=== PATIENT | male | born 1935 | race Caucasian/White ===

== ENCOUNTER 2018-02-15 12:31 | Inpatient (IN) | payer MEDICARE, MEDICAID ==
[~2018-02-15] VITALS: Ht 182.9 cm; Wt 68.9 kg
[~2018-02-15 12:31] MED LIST: ACET650S26 GT; ALBU2.5V38 NEB; AMLO5TAB4 GT; ASCO500C18 GT; ASPI-1169 GT; ATOR10TA GT; CRAN3875 GT; CRAN425C6 GT; DOCU-141 GT; DONE10TA11 GT; FLUO10CA26 GT; INSU100V27 SQ; MAGN2400 GT; METF-440 GT; MULT-1185 GT; NA P133E RC; NUT.237L30 GT; RIVA10TA GT; ZINC220C6 GT
--- NOTE | 2018-02-15 13:13 | NUR ---
PAGED DR BESS CONNER FOR CONSULT
[2018-02-15] MEDS ORDERED: LORAZEPAM INJ 2 MG/ML VIAL ONE (13:21)
--- NOTE | 2018-02-15 13:28 | NUR ---
CALLED NURSING RESPIRATORY CARE INSTRUCTOR FOR M/S BED
[2018-02-15] MEDS ORDERED: LORAZEPAM INJ 2 MG/ML VIAL IV ONE (13:30)
--- NOTE | 2018-02-15 13:37 | NUR ---
PAGED DR KNUTSON UROLOGIST FOR CONSULT
[2018-02-15 13:42] LABS: BASOPHILS # (AUTO) 0.1 /CMM (0.0-0.2); BASOPHILS % (AUTO) 0.5 % (0.0-2.0); EOSINOPHILS % (AUTO) 0.1 % (0.0-6.0); HEMATOCRIT 27 % (39-51); HEMOGLOBIN 8.8 g/dL (13.5-17.5); LYMPHOCYTES # (AUTO) 1.8 /CMM (0.8-4.8); LYMPHOCYTES % (AUTO) 9.2 % (20.0-44.0); MEAN CORPUSCULAR HGB CONC 33 g/dl (31.0-36.0); MEAN CORPUSCULAR VOLUME 86 fL (80-96); MONOCYTES # (AUTO) 1.1 /CMM (0.1-1.30); MONOCYTES % (AUTO) 5.6 % (2.0-12.0); NEUTROPHILS # (AUTO) 16.7 /CMM (1.8-8.9); NEUTROPHILS % (AUTO) 84.6 % (43.0-81.0); PLATELET COUNT (AUTO) 314 /CMM (150-450); RED BLOOD CELL COUNT(AUTO) 3.13 MIL/uL (4.5-6.0); WHITE BLOOD COUNT (AUTO) 19.8 K/uL (4.3-11.0)
[2018-02-15] MEDS ORDERED: NUTR1PAC14 GT (13:50)
[2018-02-15 13:55] LABS: ALANINE AMINOTRANSFERASE 11 U/L (12-78); ALBUMIN 2.8 g/dL (3.4-5.0); ALKALINE PHOSPHATASE 133 U/L (46-116); ASPARTATE AMINOTRANSFERASE 12 U/L (15-37); BILIRUBIN,DIRECT 0.2 mg/dL (0.0-0.2); BILIRUBIN,TOTAL 0.5 mg/dL (0.2-1.0); CALCIUM, SERUM 8.8 mg/dL (8.5-10.1); CARBON DIOXIDE 27 mmol/L (21-32); CHLORIDE 91 mmol/L (98-107); CREATININE 1.3 mg/dL (0.6-1.3); GLUCOSE 174 mg/dL (74-106); POTASSIUM 5.4 mmol/L (3.5-5.1); SODIUM SERUM 125 mmol/L (136-145); TOTAL PROTEIN, SERUM 7.5 g/dL (6.4-8.2); UREA NITROGEN, BLOOD 53 mg/dL (7-18)
--- NOTE | 2018-02-15 13:57 | NUR ---
URINE COLLECTED FROM [facility] AND SENT TO STAT LAB
[2018-02-15] MEDS ORDERED: LORAZEPAM INJ 2 MG/ML VIAL IV PRN (14:00)
[2018-02-15] MEDS ORDERED: ONDANSETRON HCL/PF 4 MG/2 ML VIAL IVP PRN (14:00)
[2018-02-15] MEDS ORDERED: HYDROCODONE/APAP 5/325MG 1 EACH TABLET PO PRN (14:00)
[2018-02-15] MEDS ORDERED: ACETAMINOPHEN 325 MG TABLET PO PRN (14:00)
[2018-02-15] MEDS ORDERED: Z GUARD REMEDY 2 OZ OINT TP PRN (14:00)
[2018-02-15] MEDS ORDERED: MAGNESIUM HYDROXIDE 30 ML UDC PO PRN (14:00)
[2018-02-15] MEDS ORDERED: CEFTRIAXONE 1GM BAG (ER ONLY) 50 ML IV ONE (14:00)
[2018-02-15] MEDS ORDERED: IV NS 0.9% 1,000 ML BAG IV ONE (14:00)
[2018-02-15] MEDS ORDERED: MAG HYDROX/AL HYDROX/SIMETH 30 ML UDC PO PRN (14:00)
[2018-02-15] MEDS ORDERED: CEFTRIAXONE 1 G VIAL ONE (14:08)
[2018-02-15 14:11] LABS: APPEARANCE,URINE Cloudy (CLEAR); BILIRUBIN,URINE SMALL (NEGATIVE); BLOOD, URINE Large Ery/uL (NEGATIVE); COLOR,URINE Other (YELLOW); KETONES,URINE Trace (NEGATIVE); LEUKOCYTE ESTERASE ,URINE Small (NEGATIVE); NITRITE, URINE Positive (NEGATIVE); PH,URINE 5.5 (5.0-8.0); PROTEIN,URINE >=300 mg/dl (NEGATIVE); UGLUCOSE Negative (NEGATIVE); UROBILINOGEN,URINE 0.2 EU/dL (0.2)
[2018-02-15] MEDS ORDERED: TAMSULOSIN 0.4 MG CAP.SR.24H PO ONE (14:30)
[2018-02-15 14:35] LABS: RBC,URINE TOO NUMEROUS TO COUN /HPF (0-2)
[2018-02-15 14:36] LABS: BACTERIA,URINE 3+ /HPF (None Seen); SQUAMOUS EPITHELIAL CELL,UR Few /HPF (None Seen)
[2018-02-15 14:51] LABS: ALANINE AMINOTRANSFERASE 11 U/L (12-78); ALBUMIN 2.8 g/dL (3.4-5.0); ALKALINE PHOSPHATASE 133 U/L (46-116); ASPARTATE AMINOTRANSFERASE 12 U/L (15-37); BILIRUBIN,DIRECT 0.2 mg/dL (0.0-0.2); BILIRUBIN,TOTAL 0.5 mg/dL (0.2-1.0); TOTAL PROTEIN, SERUM 7.5 g/dL (6.4-8.2)
--- NOTE | 2018-02-15 15:25 | NUR ---
PT BR[facility]GHT IN FROM [facility] FOR PULLING OUT BESS TWICE. PT HAD BESS REPLACED WITH THREE-WAY 16 F CATH. UROLOGIST EVALUATED PT PT HAS 900 ML OF DARK RED COLORED URINE. PT HAS PIV IN RIGHT FORE ARM 22 G WILL CONTINUE TO MONITOR.
--- NOTE | 2018-02-15 15:44 | NUR ---
1 LITER FLUID COMPLETED
--- NOTE | 2018-02-15 15:56 | NUR ---
REPORT GIVEN TO BART HANSEN PT HAS ROOM 107
--- NOTE | 2018-02-15 15:57 | NUR ---
EMPYTED BESS BAG FOR ANOTHER 300 ML DARK RED URINE
--- NOTE | 2018-02-15 16:20 | NUR ---
MS TECHNICAL PROPOSAL WRITER OPENING NOTES RECEIVED PT FROM ER TO ROOM 107 BY ISHAAN.SPEECH IS UNCLEAR AND CONFUSED.ON ROOM AIR WITH O2 SATURATION 96%.NO SOB AND ACUTE DISTRESS NOTED.IV LINE IS ON RIGHT HAND G22,SITE IS CLEAN,DRY AND INTACT AND NO INFILTRATION NOTED.BESS CATHETER FR [address] AND NOTED WITH MILD BLEEDING.G TUBE FR [address] AND NO RESIDUAL NOTED.B/L WRIST RESTRAINTS PRESENT PT IS TRYING TO PULL OUT FC,SKIN IS CLEAR AND NO SKIN TEAR NOTED.SKIN ASSESSMENT IS DONE AND TAKEN THE PICTURE .VITAL SIGNS ARE CHECKED AND RECORDED.SAFETY IS MAINTAINED AT ALL TIMES.BED IS IN LOW POSITION AND LOCKED.CALL LIGHT IS WITHIN REACH.WILL CONTINUE TO MONITOR THE PT CLOSELY.
[2018-02-15 16:30] VITALS: BP 117/54
[2018-02-15] MEDS: IV NS 0.9% 1,000 ML IV PRN (16:51)
[2018-02-15 17:30] VITALS: BP 117/54
--- NOTE | 2018-02-15 18:50 | NUR ---
MS RN NOTES ORDERED TO D/C SOFT DIET AND TO START G TUBE FEEDING GLUCERNA 1.2 @75CC/HR.NEW ORDERS NOTED AND CARRIED OUT.
--- NOTE | 2018-02-15 18:52 | NUR ---
MS RN CLOSING NOTES PT IS ON BED WITH B/L WRIST RESTRAINTS.NO SOB AND ACUTE DISTRESS NOTED.RESPIRATIONS ARE WNL.MILD BLEEDING FROM FC IS PRESENT.ENDORSED TO DIPLOMA PHARMACY TECHNICIAN RN FOR CONTINUITY OF CARE AND TO START G TUBE FEEDING.
[2018-02-15] MEDS ORDERED: GLUCERNA 1.2 1,000 ML BOTTLE GT SCH (19:00)
[2018-02-15] MEDS ORDERED: GLUCERNA 1.2 1,000 ML BOTTLE NG SCH (19:00)
[2018-02-15 20:00] VITALS: BP 129/68
--- NOTE | 2018-02-15 20:00 | NUR ---
MIAN RN NOTES RECEIVED PATIENT REPORT FROM AM NURSE. PATIENT'S SPEECH IS UNCLEAR AND PATIENT IS CONFUSED.ON ROOM AIR WITH O2 SATURATION 100%.NO SOB AND ACUTE DISTRESS NOTED.IV LINE IS ON RIGHT FOREARM G22,SITE IS CLEAN,DRY AND INTACT AND NO INFILTRATION NOTED.BESS CATHETER FR [address] AND NOTED WITH YELLOW URIN DRAINING IN GRAVITY.G TUBE FR [address], CLAMPED WITH MILD BLEEDING AND 30 ML OF BLOODY RESIDUAL .B/L WRIST RESTRAINTS PRESENT PT IS TRYING TO PULL OUT FC. SAFETY IS MAINTAINED AT ALL TIMES.BED IS IN LOW POSITION AND LOCKED.CALL LIGHT IS WITHIN REACH.WILL CONTINUE TO MONITOR THE PT CLOSELY.
[2018-02-15] MEDS ORDERED: DEXTROSE 50%-WATER 50 ML DISP.SYRIN IV PRN (23:30)
--- NOTE | 2018-02-15 23:39 | NUR ---
RN NOTES CALLED DR BOYLE ABOUT GASTRIC BLOODY RESIDUAL OF 30ML. PER DR. BOYLE IT IS OK TO RESTART G TUBE FEEDING . ASKED ABOUT ACCU CHECK AND BLOOD SUGAR MEDICATION ORDERS. NEW ORDERS ARE IN PLACE. WILL CONTINUE TO MONITOR PATIENT.
[2018-02-16] MEDS: BLOOD SUGAR DIAGNOSTIC 1 EACH STRIP IN SCH ×5 (01:04→23:25)
[2018-02-16] MEDS: IV NS 0.9% 1,000 ML IV PRN ×2 (01:05→17:44)
[2018-02-16 04:00] VITALS: BP 124/51
[2018-02-16 05:44] LABS: BASOPHILS # (AUTO) 0.1 /CMM (0.0-0.2); BASOPHILS % (AUTO) 0.5 % (0.0-2.0); EOSINOPHILS % (AUTO) 0.3 % (0.0-6.0); HEMATOCRIT 24 % (39-51); HEMOGLOBIN 7.7 g/dL (13.5-17.5); LYMPHOCYTES # (AUTO) 2.4 /CMM (0.8-4.8); LYMPHOCYTES % (AUTO) 12.4 % (20.0-44.0); MEAN CORPUSCULAR HGB CONC 33 g/dl (31.0-36.0); MEAN CORPUSCULAR VOLUME 87 fL (80-96); MONOCYTES # (AUTO) 0.9 /CMM (0.1-1.30); MONOCYTES % (AUTO) 4.6 % (2.0-12.0); NEUTROPHILS # (AUTO) 15.6 /CMM (1.8-8.9); NEUTROPHILS % (AUTO) 82.2 % (43.0-81.0); PLATELET COUNT (AUTO) 255 /CMM (150-450); RED BLOOD CELL COUNT(AUTO) 2.72 MIL/uL (4.5-6.0)
[2018-02-16 06:09] LABS: CALCIUM, SERUM 8.5 mg/dL (8.5-10.1); CARBON DIOXIDE 27 mmol/L (21-32); CHLORIDE 98 mmol/L (98-107); CREATININE 0.9 mg/dL (0.6-1.3); GLUCOSE 150 mg/dL (74-106); MAGNESIUM 1.6 mg/dL (1.8-2.4); PHOSPHORUS 2.6 mg/dL (2.5-4.9); POTASSIUM 4.4 mmol/L (3.5-5.1); SODIUM SERUM 132 mmol/L (136-145); UREA NITROGEN, BLOOD 33 mg/dL (7-18)
--- NOTE | 2018-02-16 07:10 | NUR ---
MS RN OPENING NOTES RECEIVE DPT ON BED.PT IS CONFUSED AND UNCLEAR SPEECH,HAS B/L SOFT WRIST RESTRAINTS.SKIN IS SOFT AND NO SKIN TEAR NOTED.ON RA WITH O2 SATURATION WNL.NO SOB AND ACUTE DISTRESS NOTED.IV LINE IS ON RIGHT FA G20,SITE IS CLEAN,DRY AND INTACT,NO INFILTRATION NOTED.MODERATE BRIGHT RED BLEEDING NOTED FROM G TUBE SITE.COLD PACK IS APPLIED.FC IS IN PLACE AND NO BLEEDING NOTED WITH CLEAR YELLOW COLOR URINE.SAFETY IS MAINTAINED AT ALL TIMES.BED IS IN LOW POSITION AND LOCKED.CALL LIGHT IS WITH IN REACH.WILL CONTINUE TO MONITOR THE PT CLOSELY.
[2018-02-16 08:00] VITALS: BP 108/48
[2018-02-16] MEDS: Magnesium 1GM/D5W 100ML PREMIX 100 ML IV SCH ×2 (08:12→09:44)
[2018-02-16] MEDS: METFORMIN 500 MG TABLET GT SCH ×2 (08:29→16:30)
--- NOTE | 2018-02-16 10:00 | NUR ---
MS RN NOTES CONTINUE WITH G TUBE SITE BLEEDING WITH BRIGHT RED IN COLOR.DRESSING CHANGED X3,APPLIED ICE PACK,STILL BLEEDING.REPORTED TO DR.RUTHERFORD BOWER AND HE MADE AWARE THAT THEM G TUBE FEEDING IS STILL ON HOLD.HE SAID HE WILL ORDER GI CONSULTATION.WAITING FOR GI DR.VITAL SIGNS CHECKED AND WNL.NO ANY OTHER COMPLICATIONS NOTED.
[2018-02-16] MEDS: INSULIN REGULAR, HUMAN 100 UNIT/ML 3 ML VIAL SQ PRN (12:27)
[2018-02-16] MEDS: CEFTRIAXONE 1 G in IV D5W 50 ML IV SCH (14:37)
[2018-02-16 16:00] VITALS: BP 108/48
--- NOTE | 2018-02-16 16:00 | NUR ---
MS RN NOTES NOTED WITH DR.MALHOTHRA CASTRO,UROLOGIST NOTES TO D/C FC,CALLED THE ART DISPLAY MAKER FOR ORDER CLARIFICATION PT IS STILL BLEEDING FROM PENIS.AWAITING FOR THE DR TO CALL BACK.
--- NOTE | 2018-02-16 17:05 | NUR ---
MS RN NOTES THE PT STILL HAVING GTUBE SITE BLEEDING,TAB METFORMIN DIDN'T GIVE BY G TUBE,ON HOLD. MADE AWARE AND WAITING FIR MILLICENT [facility] TO CONSULT. Addendum: 02/16/18 at 1714 by PAUL FUENTES RN CHARGE NURSE MADE AWARE.
--- NOTE | 2018-02-16 17:54 | NUR ---
MS RN NOTES PT STILL HAS BLEEDING FROM G TUBE SITE,NOTIFIED AND MADE AWARE ABOUT THE WAITING FOR GI CONSULTATION.HE SAID GI WOULD SEE THE PT LATER.CHARGE NURSE MADE AWARE.
--- NOTE | 2018-02-16 18:40 | NUR ---
MS RN NOTES NELIDA GAMEZ CAME AND SEE THE PT G TUBE SITE AND CHANGED TO G TUBE 20FR.NOTED WITH MILD BLEEDING.ORDERED TO HOLD G TUBE FEEDING TILL TOMORROW MORNING.IF THERE IS NO BLEEDING NOTED,CAN RESUME FEEDING.IF ITS STILL BLEEDING NOTED,CALLED THE FINE HAIRER NEW ORDERS NOTED AND CARRIED OUT.
--- NOTE | 2018-02-16 18:42 | NUR ---
MS RN CLOSING NOTES PT IS ON BED WITH NEW G TUBE 20FR INPLACED.NO COMPLICATIONS NOTED.VITAL SIGNS ARE CHECKED AND WNL.ENDORSED TO LAND DEVELOPMENT MANAGER RN FOR CONTINUE TO MONITOR THE BLEEDING.
--- NOTE | 2018-02-16 19:41 | NUR ---
MS RN NOTES RECEIVED PT ON BED. A/O X 1. ON ROOM AIR SATURATING WELL. F/C DRAINING YELLOW URINE, WITH SCANTY BLEEDING IN THE URETHRA. GTUBE SITE SCANTY BLEEDING NOTED, PT ON NPO. DRESSING CHANGED DONE. HEAD OF BED ELEVATED. SIDE RAILS UP. CALL LIGHT WITHIN REACH. BED ALARM ON. WILL CONTINUE TO MONITOR PT CLOSELY.
--- NOTE | 2018-02-16 19:50 | NUR ---
MS RN NOTES CALLED DR REGARDING PT NPO FOR A DAY AND POC GLUCOSE TRENDING DOWN. PER MARKETING COMMUNICATIONS LEADER START IV DEXTROSE IF BLOOD SUGAR IS BELOW 60. WILL CONTINUE TO MONITOR PT
[2018-02-16 20:00] VITALS: BP 111/55
[2018-02-17] VITALS: BP 126/73
[2018-02-17 04:00] VITALS: BP 132/61
[2018-02-17] MEDS: BLOOD SUGAR DIAGNOSTIC 1 EACH STRIP IN SCH ×3 (05:13→18:20)
[2018-02-17] MEDS: IV NS 0.9% 1,000 ML IV PRN ×2 (05:28→22:01)
--- NOTE | 2018-02-17 06:45 | NUR ---
MS RN NOTES NO ACUTE CHANGES NOTED THROUGHOUT THE SHIFT. NO BLEEDING IN GTUBE SITE AND SCANTY AMOUNT OF BLEEDING IN THE PENILE AREA NOTED. NO RESPIRATORY DISTRESS NOTED. BESS CATH DRAINING CLEAR URINE. WILL ENDORSE TO THE AM NURSE FOR CONTINUITY OF CARE.
--- NOTE | 2018-02-17 07:20 | NUR ---
MS RN OPENING NOTES RECEIVE PT ON BED.PT IS CONFUSED AND UNCLEAR SPEECH,HAS B/L SOFT WRIST RESTRAINTS.SKIN IS SOFT AND NO SKIN TEAR NOTED.ON O2 2L VIA NASAL CANULA,WITH O2 SATURATION WNL.NO SOB AND ACUTE DISTRESS NOTED.IV LINE IS ON RIGHT FA G20 WITH NS AT 75CC/HR,SITE IS CLEAN,DRY AND INTACT,NO INFILTRATION NOTED.G TUBE SITE IS CLEAN NO BLEEDING NOTED..FC IS IN PLACE AND NO BLEEDING NOTED DRAINING WITH CLEAR YELLOW COLOR URINE.SAFETY IS MAINTAINED .BED IS IN LOW POSITION AND LOCKED.CALL LIGHT IS WITH IN REACH.WILL CONTINUE TO MONITOR THE PATIENT.
[2018-02-17] MEDS: METFORMIN 500 MG TABLET GT SCH ×2 (07:30→16:30)
[2018-02-17 08:00] VITALS: BP 133/52
[2018-02-17 08:13] LABS: BASOPHILS % (AUTO) 0.4 % (0.0-2.0); EOSINOPHILS % (AUTO) 0.5 % (0.0-6.0); HEMATOCRIT 24 % (39-51); HEMOGLOBIN 7.8 g/dL (13.5-17.5); LYMPHOCYTES # (AUTO) 1.6 /CMM (0.8-4.8); LYMPHOCYTES % (AUTO) 13.5 % (20.0-44.0); MEAN CORPUSCULAR HGB CONC 32 g/dl (31.0-36.0); MEAN CORPUSCULAR VOLUME 88 fL (80-96); MONOCYTES # (AUTO) 0.5 /CMM (0.1-1.30); MONOCYTES % (AUTO) 4.3 % (2.0-12.0); NEUTROPHILS # (AUTO) 9.5 /CMM (1.8-8.9); NEUTROPHILS % (AUTO) 81.3 % (43.0-81.0); PLATELET COUNT (AUTO) 302 /CMM (150-450); RED BLOOD CELL COUNT(AUTO) 2.74 MIL/uL (4.5-6.0); WHITE BLOOD COUNT (AUTO) 11.7 K/uL (4.3-11.0)
[2018-02-17 08:33] LABS: CALCIUM, SERUM 8.4 mg/dL (8.5-10.1); CARBON DIOXIDE 26 mmol/L (21-32); CHLORIDE 99 mmol/L (98-107); CREATININE 0.8 mg/dL (0.6-1.3); GLUCOSE 112 mg/dL (74-106); MAGNESIUM 1.7 mg/dL (1.8-2.4); PHOSPHORUS 2.6 mg/dL (2.5-4.9); POTASSIUM 4.1 mmol/L (3.5-5.1); SODIUM SERUM 136 mmol/L (136-145); UREA NITROGEN, BLOOD 20 mg/dL (7-18)
--- NOTE | 2018-02-17 08:37 | NUR ---
MS RN OTES SEEN BY ,UPDATED PATIENT CONDITION.NOTIFIED ABOUT LABS .ASKED TO WAIT FOR GI TO EVALUATE TO START FEEDING.OK TO KEEP ON IVF NS.WILL CONTINUE TO MONITOR.
[2018-02-17] MEDS: Magnesium 1GM/D5W 100ML PREMIX 100 ML IV SCH ×2 (09:24→11:03)
--- NOTE | 2018-02-17 11:00 | NUR ---
MS RN NOTES SEEN BY DIETITIAN UPDATED ABOUT PATIENT CONDITION.GOT NEW ORDERS.
--- NOTE | 2018-02-17 12:00 | NUR ---
MS RN NOTE SEEN BY FOR WOUND CARE CONSULT,WOUND DEBRIDEMENT DONE .NO FAMILY AVAILABLE.SIGNED BY AND .WILL CONTINUE TO MONITOR.
[2018-02-17 16:00] VITALS: BP 130/46
[2018-02-17] MEDS: CEFTRIAXONE 1 G in IV D5W 50 ML IV SCH (17:07)
[2018-02-17] MEDS: CADEXOMER IODINE 40 GM TUBE TP SCH (17:07)
--- NOTE | 2018-02-17 19:56 | NUR ---
MS RN CLOSING NOTES PT IS CONFUSED AND UNCLEAR SPEECH,HAS B/L SOFT WRIST RESTRAINTS.SKIN IS SOFT AND NO SKIN TEAR NOTED.ON O2 2L VIA NASAL CANULA,WITH O2 SATURATION WNL.NO SOB AND ACUTE DISTRESS NOTED.IV LINE IS ON RIGHT FA G20 WITH NS AT 75CC/HR,SITE IS CLEAN,DRY AND INTACT,NO INFILTRATION NOTED.G TUBE SITE IS CLEAN NO BLEEDING NOTED ON GTF 20CC/HR..FC IS IN PLACE AND NO BLEEDING NOTED DRAINING WITH CLEAR YELLOW COLOR URINE.ASKED TO PM NURSE TO F/U WITH UROLOGIST FOR D/C BESS CATH.SEEN BY FROM GI.DC TO START GT FEEDING.GT FEEDING STARTED.SAFETY IS MAINTAINED .BED IS IN LOW POSITION AND LOCKED.CALL LIGHT IS WITH IN REACH.WILL CONTINUE TO MONITOR THE PATIENT.
[2018-02-17 20:00] VITALS: BP 134/37
--- NOTE | 2018-02-17 20:00 | NUR ---
RN MS - NOTES - RECEIVED PT IN BED. PT IS CONFUSED AND UNCLEAR SPEECH, HAS B/L SOFT WRIST RESTRAINTS. SKIN IS SOFT SACRAL WOUND NOTED. ON O2 2L VIA NASAL CANULA,WITH O2 SATURATION WNL. NO SOB AND ACUTE DISTRESS NOTED. IV LINE IS ON RIGHT FA 20G WITH NS AT 75 ML/HR, SITE IS CLEAN,DRY AND INTACT, NO INFILTRATION NOTED. G TUBE SITE IS CLEAN NO BLEEDING NOTED. FC IS IN PLACE AND NO BLEEDING NOTED DRAINING WITH CLEAR YELLOW COLOR URINE. SAFETY IS MAINTAINED. BED IS IN LOW POSITION AND LOCKED. CALL LIGHT IS WITH IN REACH. WILL CONTINUE TO MONITOR THE PATIENT.
[2018-02-18] MEDS: BLOOD SUGAR DIAGNOSTIC 1 EACH STRIP IN SCH ×4 (00:28→17:17)
[2018-02-18 04:00] VITALS: BP 120/63
[2018-02-18] MEDS: INSULIN REGULAR, HUMAN 100 UNIT/ML 3 ML VIAL SQ PRN ×3 (06:12→17:17)
[2018-02-18 06:41] LABS: BASOPHILS % (AUTO) 0.5 % (0.0-2.0); EOSINOPHILS % (AUTO) 0.6 % (0.0-6.0); HEMATOCRIT 26 % (39-51); HEMOGLOBIN 8.4 g/dL (13.5-17.5); LYMPHOCYTES # (AUTO) 2.1 /CMM (0.8-4.8); LYMPHOCYTES % (AUTO) 21.7 % (20.0-44.0); MEAN CORPUSCULAR HGB CONC 33 g/dl (31.0-36.0); MEAN CORPUSCULAR VOLUME 87 fL (80-96); MONOCYTES # (AUTO) 0.5 /CMM (0.1-1.30); MONOCYTES % (AUTO) 4.7 % (2.0-12.0); NEUTROPHILS % (AUTO) 72.5 % (43.0-81.0); PLATELET COUNT (AUTO) 366 /CMM (150-450); RED BLOOD CELL COUNT(AUTO) 2.92 MIL/uL (4.5-6.0); WHITE BLOOD COUNT (AUTO) 9.7 K/uL (4.3-11.0)
[2018-02-18 06:45] LABS: CALCIUM, SERUM 8.7 mg/dL (8.5-10.1); CARBON DIOXIDE 29 mmol/L (21-32); CHLORIDE 101 mmol/L (98-107); CREATININE 0.8 mg/dL (0.6-1.3); GLUCOSE 161 mg/dL (74-106); SODIUM SERUM 138 mmol/L (136-145); UREA NITROGEN, BLOOD 17 mg/dL (7-18)
--- NOTE | 2018-02-18 07:10 | NUR ---
RN INITIAL NOTES RECEIVED PT ASLEEP, EASY TO AROUSE. PT A/OX2, WITH CONFUSION. PT ON 02 AT 2LPM VIA NC. NO SOB NOTED. NO SIGNS OF PAIN NOTED. GT IN PLACE. ON GTF. TOLERATING WELL. IV LINES IN PLACE. FC IN PLACE. NO HEMATURIA NOTED. PT COMFORTABLE. BLE ELEVATED. WILL MONITOR.
[2018-02-18 08:00] VITALS: BP 103/44
[2018-02-18] MEDS: METFORMIN 500 MG TABLET GT SCH ×2 (08:36→16:34)
[2018-02-18] MEDS: ASCORBIC ACID 500 MG TABLET GT SCH (08:36)
[2018-02-18] MEDS: MULTIPLE VIT (LYCOPENE/FA/MV,CA,IRON,MIN/LUT)1 TAB GT SCH (08:36)
[2018-02-18] MEDS: CADEXOMER IODINE 40 GM TUBE TP SCH (08:37)
--- NOTE | 2018-02-18 10:22 | NUR ---
WOUND CARE CONSULT WOUND CARE RECEIVED CONSULT FOR SACRAL WOUND. WOUND CARE WILL DEFER CONSULT AND ALL TREATMENT PLANS TO PLASTIC SURGICAL TEAM WHO ARE CURRENTLY FOLLOWING. PATIENT ALSO FOLLOWED BY DPM DR NELSON FOR LOWER EXTREMITY SKIN ISSUES. PATIENT WITH VIRGILIO AT 12, ALL PRESSURE ULCER PREVENTION MEASURES ARE NOTED TO BE IN PLACE. WILL SEE PRN.
[2018-02-18] MEDS: IV NS 0.9% 1,000 ML IV PRN (11:21)
[2018-02-18] MEDS: GLUCERNA 1.2 1,000 ML BOTTLE GT SCH (11:21)
[2018-02-18] MEDS: CEFTRIAXONE 1 G in IV D5W 50 ML IV SCH (14:10)
[2018-02-18] MEDS: LEVOFLOXACIN (250MG) 250 MG TABLET PO SCH (14:42)
[2018-02-18] MEDS ORDERED: Levofloxacin (250MG) GT (14:57)
[2018-02-18 16:00] VITALS: BP 132/76
--- NOTE | 2018-02-18 18:25 | NUR ---
RN CLOSING NOTES NO SIGNIFICANT CHANGE NOTED. PT KEPT COMFORTABLE. ALL NEEDS ATTENDED AND MET. KEPT CLEAN AND DRY. TX ORDERED. REPOSITIONED Q2. KEPT BLE ELEVATED. WILL ENDORSE FOR CONTINUITY OF CARE
[2018-02-18 20:00] VITALS: BP 129/74
--- NOTE | 2018-02-18 20:00 | NUR ---
RN INITIAL NOTES RECEIVED PT ASLEEP, EASY TO AROUSE. PT A/OX2, WITH CONFUSION. PT ON 02 2LPM VIA NC. NO SOB NOTED. NO SIGNS OF PAIN NOTED. GT IN PLACE. ON GTF AT 75ML/HR. TOLERATING WELL. IV LINE IN PLACE. FC IN PLACE DRAINING YELLOW URINE ON GRAVITY. NO HEMATURIA NOTED. PT COMFORTABLE. BLE AND HOB ELEVATED AT ALL [place]. ALL SAFETY MEASURES ARE IMPLEMENTED, BED IN LOW, LOCKED POSITION, CALL LIGHT IN REACH. WILL CONTINUE TO MONITOR.
[2018-02-19] MEDS: BLOOD SUGAR DIAGNOSTIC 1 EACH STRIP IN SCH ×4 (00:09→17:39)
[2018-02-19] MEDS: IV NS 0.9% 1,000 ML IV PRN ×2 (02:42→16:03)
[2018-02-19] MEDS: GLUCERNA 1.2 1,000 ML BOTTLE GT SCH ×2 (02:42→17:14)
[2018-02-19 04:00] VITALS: BP 134/53
[2018-02-19] MEDS: INSULIN REGULAR, HUMAN 100 UNIT/ML 3 ML VIAL SQ PRN ×3 (05:55→23:24)
--- NOTE | 2018-02-19 07:00 | NUR ---
RN MS -INITIAL NOTES - RECEIVED PT IN BED. PT IS CONFUSED AND UNCLEAR SPEECH, HAS B/L SOFT WRIST RESTRAINTS. ON O2 2L VIA NASAL CANULA,WITH O2 SATURATION WNL. NO SOB AND ACUTE DISTRESS NOTED. IV LINE IS ON L FA 20G WITH NS AT 75 ML/HR, SITE IS CLEAN,DRY AND INTACT, NO INFILTRATION NOTED. G TUBE SITE IS CLEAN NO BLEEDING NOTED. FC IS IN PLACE AND NO BLEEDING NOTED DRAINING WITH CLEAR YELLOW COLOR URINE. SAFETY IS MAINTAINED. BED IS IN LOW POSITION AND LOCKED. CALL LIGHT IS WITH IN REACH. WILL CONTINUE TO MONITOR THE PATIENT.
[2018-02-19 08:00] VITALS: BP 142/54
[2018-02-19] MEDS: ASCORBIC ACID 500 MG TABLET GT SCH (09:12)
[2018-02-19] MEDS: MULTIPLE VIT (LYCOPENE/FA/MV,CA,IRON,MIN/LUT)1 TAB GT SCH (09:12)
[2018-02-19] MEDS: METFORMIN 500 MG TABLET GT SCH ×2 (09:12→16:00)
[2018-02-19] MEDS: CADEXOMER IODINE 40 GM TUBE TP SCH (09:27)
--- NOTE | 2018-02-19 10:59 | NUR ---
patient confused on restraint and crawling on bed ,has safety issues for fall,will use isoflex and d/c kci per md order.
[2018-02-19 12:00] VITALS: BP 135/55
--- NOTE | 2018-02-19 14:00 | NUR ---
MS RN NOTE CHARANJIT DODD RESEARCH NURSE BIOPSY AT BEDSIDE OF L FLANK RASH. SPECIMEN SENT TO LAB.
[2018-02-19] MEDS: CAPSAICIN 0.025% CREAM 56.6 GM TUBE TP SCH ×2 (15:21→16:42)
[2018-02-19] MEDS: LEVOFLOXACIN (250MG) 250 MG TABLET PO SCH (15:21)
[2018-02-19 16:00] VITALS: BP 130/65
--- NOTE | 2018-02-19 19:30 | NUR ---
MS RN NOTE PT ENDORSED TO PM NURSE FOR JT. PT IN BED, ASLEEP. NO S/SX OF DISTRESS NOTED. SAFETY PRECAUTIONS IN PLACE. CALL LIGHT IN REACH.
[2018-02-19 20:00] VITALS: BP 129/50
--- NOTE | 2018-02-19 20:00 | NUR ---
MS RN NOTE PT IN BED ASLEEP, AROUSABLE. A/O X 1 CONFUSED. SKIN WARM AND DRY, NO SOB NOTED. NO DISTRESS OR DISCOMFORT NOTED. NO S/S OF PAIN NOTED. IVF NS @ 75 ML/HR INFUSING WELL, NO S/S OF INFILTRATION NOTED. GTF GLUCERNA INFUSING AT 75 ML/HR, 0 ML RESIDUAL NOTED. PT IN ISOLATION FOR POSSIBLE SHINGLES, RESULT PENDING. ISOLATION PRECAUTIONS TAKEN. PT WITH BILATERAL SOFT WRIST RESTRAINTS. SKIN AROUND RESTRAINT WNL. KEPT HIM DRY AND CLEAN. REPOSITION HIM FOR SKIN MANAGEMENT. WILL REPOSITION HIM Q2H DURING THE SHIFT. SIDE RAILS UP X 3 AND CALL LIGHT WITHIN REACH. VSS. CONTINUE TO MONITOR HIM.
[2018-02-19] MEDS: VALACYCLOVIR HCL 500 MG TABLET GT SCH (21:17)
--- NOTE | 2018-02-19 22:03 | NUR ---
MS RN NOTE NOTED PT WITH NO OUTPUT S/P F/C REMOVAL EARLIER IN DAY SHIFT. BLADDER SCANNER SHOWS 305 ML FLUID, IN AND OUT CATH DONE, ONLY 100 ML URINE OUTPUT NOTED WITH SEDIMENTS. CONTINUE TO MONITOR PT.
[2018-02-20] MEDS: BLOOD SUGAR DIAGNOSTIC 1 EACH STRIP IN SCH ×4 (00:05→18:00)
--- NOTE | 2018-02-20 03:08 | NUR ---
MS RN NOTE PT ASLEEP, NO DISTRESS OR DISCOMFORT NOTED. IVF AND GTF INFUSING WELL. NO BLADDER DISTENTION NOTED. NO OUTPUT NOTED. ON BLADDER SCANNER SHOWS ONLY 134 ML. CONTINUE TO MONITOR.
[2018-02-20 04:00] VITALS: BP 130/55
[2018-02-20] MEDS: GLUCERNA 1.2 1,000 ML BOTTLE GT SCH (05:23)
[2018-02-20] MEDS: IV NS 0.9% 1,000 ML IV PRN (05:24)
[2018-02-20] MEDS: INSULIN REGULAR, HUMAN 100 UNIT/ML 3 ML VIAL SQ PRN ×2 (05:43→13:40)
[2018-02-20 06:29] LABS: BASOPHILS # (AUTO) 0.1 /CMM (0.0-0.2); BASOPHILS % (AUTO) 0.8 % (0.0-2.0); EOSINOPHILS % (AUTO) 0.8 % (0.0-6.0); HEMATOCRIT 23 % (39-51); HEMOGLOBIN 7.5 g/dL (13.5-17.5); LYMPHOCYTES # (AUTO) 1.7 /CMM (0.8-4.8); LYMPHOCYTES % (AUTO) 24.9 % (20.0-44.0); MEAN CORPUSCULAR HGB CONC 33 g/dl (31.0-36.0); MEAN CORPUSCULAR VOLUME 87 fL (80-96); MONOCYTES # (AUTO) 0.7 /CMM (0.1-1.30); MONOCYTES % (AUTO) 9.8 % (2.0-12.0); NEUTROPHILS # (AUTO) 4.4 /CMM (1.8-8.9); NEUTROPHILS % (AUTO) 63.7 % (43.0-81.0); PLATELET COUNT (AUTO) 345 /CMM (150-450); RED BLOOD CELL COUNT(AUTO) 2.63 MIL/uL (4.5-6.0); WHITE BLOOD COUNT (AUTO) 6.8 K/uL (4.3-11.0)
--- NOTE | 2018-02-20 06:32 | NUR ---
MS RN NOTE PT IN BED ASLEEP, AROUSABLE. NO DISTRESS OR DISCOMFORT NOTED. NO S/S OF PAIN NOTED. IVF INFUSING WELL, NO S/S OF INFILTRATION NOTED. ALSO GTF INFUSING WELL. 0 ML RESIDUAL NOTED. REPOSITION HIM Q2H, BILETERAL SOFT WRIST RESTERANTS ON. NO BLADER DISTENTION NOTED. PT HAS LOW OUTPUT. KEPT HIM DRY AND CLEAN. SIDE RAILS UP X 3 AND CALL LIGHT WITHIN REACH. VSS. WILL ENDORSE TO DAY SHIFT NURSE FOR CONTINUE TO CARE.
[2018-02-20 06:43] LABS: CALCIUM, SERUM 8.1 mg/dL (8.5-10.1); CARBON DIOXIDE 29 mmol/L (21-32); CHLORIDE 104 mmol/L (98-107); CREATININE 0.7 mg/dL (0.6-1.3); GLUCOSE 155 mg/dL (74-106); MAGNESIUM 1.4 mg/dL (1.8-2.4); PHOSPHORUS 2.5 mg/dL (2.5-4.9); POTASSIUM 4.4 mmol/L (3.5-5.1); SODIUM SERUM 140 mmol/L (136-145); UREA NITROGEN, BLOOD 16 mg/dL (7-18)
--- NOTE | 2018-02-20 07:20 | NUR ---
MS RN OPENING NOTES RECEIVED PT ON BED.ALERT/ORIENTED X1 WITH CONFUSION WITH DROPLET ISOLATION.ON 2L O2 VIA NC CONTINUOUSLY,TOLERATING WELL.NO SOB AND ACUTE DISTRESS NOTED.CONTINUE WITH MONITORING I&O Q6HRS.IV LINE IS ON LEFT FA G20,SITE IS CLEAN,DRY AND INTACT.SAFETY IS MAINTAINED AT ALL TIMES.BE DIS IN LOW POSITION AND LOCKED.CALL LIGHT IS WITHIN REACH.WILL CONTINUE TO MONITOR THE PT CLOSELY.
[2018-02-20 08:00] VITALS: BP 126/81
--- NOTE | 2018-02-20 08:03 | NUR ---
WOUND CARE CONSULT WOUND CARE RECEIVED CONSULT FOR LEFT LOWER BACK RASH. WOUND CARE WILL DEFER CONSULT AND TREATMENT PLAN TO PLASTIC SURGICAL TEAM WELL PRIMARY MD/WIRE WINDING MACHINE TENDER TEAM. WILL SEE PRN.
[2018-02-20] MEDS: METFORMIN 500 MG TABLET GT SCH ×2 (09:14→16:06)
[2018-02-20] MEDS: MULTIPLE VIT (LYCOPENE/FA/MV,CA,IRON,MIN/LUT)1 TAB GT SCH (09:14)
[2018-02-20] MEDS: ASCORBIC ACID 500 MG TABLET GT SCH (09:14)
[2018-02-20] MEDS: VALACYCLOVIR HCL 500 MG TABLET GT SCH ×2 (09:15→20:25)
--- NOTE | 2018-02-20 09:20 | NUR ---
MS RN NOTES BLADDER SCAN DONE,NOTED 200ML.DRAINED OUT 100ML OF URINE.NO COMPLICATIONS NOTED.
[2018-02-20] MEDS: Magnesium 1GM/D5W 100ML PREMIX 100 ML IV SCH ×2 (13:27→14:33)
[2018-02-20] MEDS: CADEXOMER IODINE 40 GM TUBE TP SCH (13:35)
[2018-02-20] MEDS: CAPSAICIN 0.025% CREAM 56.6 GM TUBE TP SCH ×3 (13:35→18:00)
--- NOTE | 2018-02-20 15:15 | NUR ---
MS RN NOTES BLADDER SCAN IS DONE AND NOTED WITH 50ML,PT HAS URINATED MILD AMOUNT X2.
[2018-02-20 16:00] VITALS: BP 138/72
[2018-02-20] MEDS: LEVOFLOXACIN (250MG) 250 MG TABLET PO SCH (16:06)
--- NOTE | 2018-02-20 18:52 | NUR ---
MS RN CLOSING NOTES PT IS ON BED WITH B/L WRIST RESTRAINTS.SKIN IS ASSESSED AND NO NEW JT NOTED.RESPIRATION IS WNL FOR NOW.ENDORSED TO LEAF CONDITIONER RN FOR CONTINUITY OF CARE.
[2018-02-20 20:00] VITALS: BP 136/64
--- NOTE | 2018-02-20 20:05 | NUR ---
RECEIVED PTS IN BED AWAKE AND RESPONSIVE , V/S STABLE AFEBRILE, PTS ON ISOLATION FOR POSSIBLE SHINGLES , PENDING RESULT FLANK BX ALL DUE MEDS GIVEN ORDERED, PRECAUTIONARY MEASURES OBSERVED AT ALL TIME .WITH IVF OF NS AT 75CC/HR INFUSING WELL , GT FEEDING OF GLUCERNA 1.2 AT 75CC/HR TOLERATED WELL NO RESIDUAL NOTED , ALL NEEDS ATTENDED TOO CALL LIGHTS WITHIN REACH .TURNED AND REPOSITIONED , HOB ELEVATED FOR ASPIRATION PRECAUTION, KEPT PTS CLEAN DRY AND COMFORTABLE , PTS ON BILATERAL SOFT WRIST RESTRAINT TO PREVENT FROM PULLING INVASIVE TUBING , WILL CONTINUE TO MONITOR PTS .
--- NOTE | 2018-02-20 21:00 | NUR ---
MS RN NOTES BLADDER SCAN DONE NOTED WITH 175CC OF URINE.PTS ALSO NOTED WITH DIAPER WET.
[2018-02-21] VITALS: BP 140/61
--- NOTE | 2018-02-21 | NUR ---
MS RN NOTES BLOOD SUGAR FOR 12MN IS 187 MG/DL =3 UNITS OF INSULIN GIVEN PER SLIDING SCALE .
[2018-02-21] MEDS: INSULIN REGULAR, HUMAN 100 UNIT/ML 3 ML VIAL SQ PRN ×3 (00:52→14:00)
[2018-02-21] MEDS: BLOOD SUGAR DIAGNOSTIC 1 EACH STRIP IN SCH ×3 (00:53→13:58)
[2018-02-21] MEDS: GLUCERNA 1.2 1,000 ML BOTTLE GT SCH (01:03)
[2018-02-21] MEDS: IV NS 0.9% 1,000 ML IV PRN (01:14)
--- NOTE | 2018-02-21 03:00 | NUR ---
BLADDER SCAN DONE AT 3PM NOTED WITH 800CC OF URINE In and out cath done 800 cc of urine drained.yellowish color .also diaper is wet.
--- NOTE | 2018-02-21 06:00 | NUR ---
MS RN NOTES BLOOD SUGAR FOR 6AM IS 114 NO COVERAGE GIVEN PER SLIDING SCALE.
[2018-02-21 06:32] LABS: BASOPHILS % (AUTO) 0.4 % (0.0-2.0); EOSINOPHILS % (AUTO) 0.2 % (0.0-6.0); HEMATOCRIT 22 % (39-51); HEMOGLOBIN 7.3 g/dL (13.5-17.5); LYMPHOCYTES # (AUTO) 1.8 /CMM (0.8-4.8); LYMPHOCYTES % (AUTO) 22.2 % (20.0-44.0); MEAN CORPUSCULAR HGB CONC 33 g/dl (31.0-36.0); MEAN CORPUSCULAR VOLUME 86 fL (80-96); MONOCYTES # (AUTO) 0.8 /CMM (0.1-1.30); MONOCYTES % (AUTO) 9.8 % (2.0-12.0); NEUTROPHILS # (AUTO) 5.5 /CMM (1.8-8.9); NEUTROPHILS % (AUTO) 67.4 % (43.0-81.0); PLATELET COUNT (AUTO) 334 /CMM (150-450); RED BLOOD CELL COUNT(AUTO) 2.57 MIL/uL (4.5-6.0); WHITE BLOOD COUNT (AUTO) 8.2 K/uL (4.3-11.0)
[2018-02-21 06:49] LABS: CALCIUM, SERUM 7.9 mg/dL (8.5-10.1); CARBON DIOXIDE 31 mmol/L (21-32); CHLORIDE 101 mmol/L (98-107); CREATININE 0.7 mg/dL (0.6-1.3); GLUCOSE 123 mg/dL (74-106); MAGNESIUM 1.6 mg/dL (1.8-2.4); PHOSPHORUS 2.6 mg/dL (2.5-4.9); POTASSIUM 4.1 mmol/L (3.5-5.1); SODIUM SERUM 138 mmol/L (136-145); UREA NITROGEN, BLOOD 16 mg/dL (7-18)
[2018-02-21 08:00] VITALS: BP 147/68
[2018-02-21] MEDS: MULTIPLE VIT (LYCOPENE/FA/MV,CA,IRON,MIN/LUT)1 TAB GT SCH (09:34)
[2018-02-21] MEDS: VALACYCLOVIR HCL 500 MG TABLET GT SCH (09:34)
[2018-02-21] MEDS: ASCORBIC ACID 500 MG TABLET GT SCH (09:34)
[2018-02-21] MEDS: METFORMIN 500 MG TABLET GT SCH (09:35)
[2018-02-21] MEDS: CADEXOMER IODINE 40 GM TUBE TP SCH (09:35)
[2018-02-21] MEDS: CAPSAICIN 0.025% CREAM 56.6 GM TUBE TP SCH ×2 (09:35→13:52)
[2018-02-21] MEDS: Magnesium 1GM/D5W 100ML PREMIX 100 ML IV SCH ×2 (11:43→13:51)
--- NOTE | 2018-02-21 14:30 | NUR ---
MS RN NOTE CALLED IN REPORT TO CUBA HANSEN AT [facility].
--- NOTE | 2018-02-21 14:55 | NUR ---
MS RN NOTE PT LEFT WITH AMBULANCE CREW. IV REMOVED. PT DISCHARGE INSTRUCTIONS SENT ALONG WITH CREW.
== END 2018-02-21 15:55 | DRG 673 ==
LOC: ER 12:32 → MEDSG1 15:54
PROVIDERS: ADMIT Internal Medicine; ATTEND Nurse Practitioner Acute Care
PROC: 0D20XUZ Change Feeding Device in Upper Intestinal Tract, External Approach (ICD-10-PCS; 2018-02-16)
PROC: 0JB70ZZ Excision of Back Subcutaneous Tissue and Fascia, Open Approach (ICD-10-PCS; principal; 2018-02-17)
PROC: 0HB7XZX Excision of Abdomen Skin, External Approach, Diagnostic (ICD-10-PCS; 2018-02-19)
DX: N39.0 Urinary tract infection, site not specified (principal); L89.324 Pressure ulcer of left buttock, stage 4; L89.314 Pressure ulcer of right buttock, stage 4; L89.154 Pressure ulcer of sacral region, stage 4; N17.0 Acute kidney failure with tubular necrosis; E44.0 Moderate protein-calorie malnutrition; E87.1 Hypo-osmolality and hyponatremia; I13.0 Hypertensive heart and chronic kidney disease with heart failure and stage 1 through stage 4 chronic kidney disease, or unspecified chronic kidney disease; G93.40 Encephalopathy, unspecified; D68.59 Other primary thrombophilia; E87.2 Acidosis; K94.23 Gastrostomy malfunction; R31.9 Hematuria, unspecified; D64.9 Anemia, unspecified; E11.22 Type 2 diabetes mellitus with diabetic chronic kidney disease; B02.9 Zoster without complications; E78.5 Hyperlipidemia, unspecified; E83.42 Hypomagnesemia; E86.1 Hypovolemia; E87.5 Hyperkalemia; F03.90 Unspecified dementia, unspecified severity, without behavioral disturbance, psychotic disturbance, mood disturbance, and anxiety; K21.9 Gastro-esophageal reflux disease without esophagitis; N40.1 Benign prostatic hyperplasia with lower urinary tract symptoms; Z87.440 Personal history of urinary (tract) infections; I25.10 Atherosclerotic heart disease of native coronary artery without angina pectoris; J45.909 Unspecified asthma, uncomplicated; N18.9 Chronic kidney disease, unspecified; D72.829 Elevated white blood cell count, unspecified; R53.1 Weakness; M62.50 Muscle wasting and atrophy, not elsewhere classified, unspecified site; Z68.20 Body mass index [BMI] 20.0-20.9, adult; F32.9 Major depressive disorder, single episode, unspecified; Z79.4 Long term (current) use of insulin; R33.8 Other retention of urine; L89.020 Pressure ulcer of left elbow, unstageable; L89.010 Pressure ulcer of right elbow, unstageable; B96.5 Pseudomonas (aeruginosa) (mallei) (pseudomallei) as the cause of diseases classified elsewhere; I50.9 Heart failure, unspecified; Y84.8 Other medical procedures as the cause of abnormal reaction of the patient, or of later complication, without mention of misadventure at the time of the procedure; Y73.8 Miscellaneous gastroenterology and urology devices associated with adverse incidents, not elsewhere classified; Y92.129 Unspecified place in nursing home as the place of occurrence of the external cause; E11.65 Type 2 diabetes mellitus with hyperglycemia; R23.8 Other skin changes
CPT/HCPCS: 36415; 71045-TC; 80048-TC; 80076-TC; 81000-TC; 82962-TC; 83605-TC; 83735-TC; 84100-TC; 84484-TC; 85025-TC; 85730-TC; 87040-TC; 87081-TC; 87086-TC; 87186-TC; 88305-TC; A4217; A4606; A6253; A6402; A6403; A6407; G0378; J0696; J1815; J2060; J3475; J3490; J7030; J7060; Z7610

== ENCOUNTER 2018-04-13 18:02 | Inpatient (IN) | payer MEDICARE, MEDICAID ==
[~2018-04-13] VITALS: Ht 182.9 cm; Wt 64.9 kg
[~2018-04-13 18:02] MED LIST changes: -CRAN3875 GT; +Levofloxacin (250MG) GT; +NUTR1PAC14 GT
--- NOTE | 2018-04-13 18:07 | NUR ---
ESTEPHANIA RA 79 FROM [facility] ([facility]). TO ER BED 4, HOOKED TO OIL PRODUCER, CHANGED TO MELIZA, AWAITING MD TORRES
--- NOTE | 2018-04-13 18:10 | NUR ---
DR KYLE AT BEDSIDE
[2018-04-13] MEDS ORDERED: ACET-868 GT (18:24)
[2018-04-13] MEDS ORDERED: INSU100V7 SQ (18:24)
[2018-04-13] MEDS ORDERED: OMEP20CA10 GT (18:24)
[2018-04-13] MEDS ORDERED: AMIN30LI2 GT (18:24)
[2018-04-13] MEDS ORDERED: BLOO-668 IN (18:24)
[2018-04-13 18:32] LABS: BASOPHILS # (AUTO) 0.1 /CMM (0.0-0.2); BASOPHILS % (AUTO) 0.4 % (0.0-2.0); HEMATOCRIT 27 % (39-51); HEMOGLOBIN 8.5 g/dL (13.5-17.5); LYMPHOCYTES # (AUTO) 2.6 /CMM (0.8-4.8); MEAN CORPUSCULAR HGB CONC 32 g/dl (31.0-36.0); MEAN CORPUSCULAR VOLUME 86 fL (80-96); MONOCYTES # (AUTO) 0.7 /CMM (0.1-1.30); MONOCYTES % (AUTO) 3.2 % (2.0-12.0); NEUTROPHILS # (AUTO) 16.8 /CMM (1.8-8.9); NEUTROPHILS % (AUTO) 83.4 % (43.0-81.0); PLATELET COUNT (AUTO) 531 /CMM (150-450); RED BLOOD CELL COUNT(AUTO) 3.13 MIL/uL (4.5-6.0); WHITE BLOOD COUNT (AUTO) 20.2 K/uL (4.3-11.0)
[2018-04-13 18:41] LABS: CALCIUM, SERUM 8.8 mg/dL (8.5-10.1); CARBON DIOXIDE 28 mmol/L (21-32); CHLORIDE 100 mmol/L (98-107); CREATININE 1.1 mg/dL (0.6-1.3); GLUCOSE 224 mg/dL (74-106); POTASSIUM 4.8 mmol/L (3.5-5.1); SODIUM SERUM 135 mmol/L (136-145); UREA NITROGEN, BLOOD 58 mg/dL (7-18)
[2018-04-13 18:53] LABS: ALANINE AMINOTRANSFERASE 42 U/L (12-78); ALBUMIN 2.1 g/dL (3.4-5.0); ALKALINE PHOSPHATASE 132 U/L (46-116); ASPARTATE AMINOTRANSFERASE 31 U/L (15-37); B-TYPE NATRIURETIC PEPTIDE 5986 PG/ML (0-125); BILIRUBIN,DIRECT 0.2 mg/dL (0.0-0.2); BILIRUBIN,TOTAL 0.4 mg/dL (0.2-1.0); TOTAL PROTEIN, SERUM 7.9 g/dL (6.4-8.2)
[2018-04-13] MEDS ORDERED: IV NS 0.9% 1,000 ML BAG IV ONE (19:00)
[2018-04-13] MEDS ORDERED: PIPERACILLIN /TAZOBACTAM 3.375 G in IV D5W 50 ML IV ONE (19:00)
[2018-04-13] MEDS ORDERED: VANCOMYCIN 1 GM in IV D5W 250 ML IV ONE (19:00)
--- NOTE | 2018-04-13 19:00 | NUR ---
ADDENDUM: INF - NS 2.2 Liters wide open: start time: 1900 PM; end time 2130 PM; PIV # 20 LH; port # 2
[2018-04-13] MEDS ORDERED: ASPIRIN 300 MG/SUPP.RECT RC ONE ×2 (19:08→19:30)
[2018-04-13] MEDS ORDERED: VANCOMYCIN 1 GM VIAL ONE (19:20)
--- NOTE | 2018-04-13 19:22 | NUR ---
CALLED [employer] LAY UPS ASSEMBLER WAS PAGED.
--- NOTE | 2018-04-13 19:34 | NUR ---
REPORT GIVEN TO JENNIFER HANSEN FOR JT
[2018-04-13] MEDS ORDERED: ACETAMINOPHEN 325 MG TABLET PO PRN (20:00)
[2018-04-13] MEDS ORDERED: NA PHOS,M-B/NA PHOS,DI-BA 1 EA ENEMA RC PRN (20:00)
[2018-04-13] MEDS ORDERED: ONDANSETRON HCL/PF 4 MG/2 ML VIAL IVP PRN (20:00)
[2018-04-13] MEDS ORDERED: Z GUARD REMEDY 2 OZ OINT TP PRN (20:00)
[2018-04-13] MEDS ORDERED: DEXTROSE 50%-WATER 50 ML DISP.SYRIN IV PRN (20:00)
[2018-04-13] MEDS ORDERED: HYDROCODONE/APAP 5/325MG 1 EACH TABLET PO PRN (20:00)
[2018-04-13] MEDS ORDERED: MAGNESIUM HYDROXIDE 30 ML UDC PO PRN (20:00)
[2018-04-13] MEDS ORDERED: MAG HYDROX/AL HYDROX/SIMETH 30 ML UDC PO PRN (20:00)
--- NOTE | 2018-04-13 20:11 | NUR ---
REPORT GIVEN TO HAILEY HANSEN FOR JT.
[2018-04-13] MEDS ORDERED: MAG HYDROX/AL HYDROX/SIMETH 30 ML UDC GT PRN (21:00)
[2018-04-13] MEDS ORDERED: MAGNESIUM HYDROXIDE 30 ML UDC GT PRN (21:01)
[2018-04-13 22:00] VITALS: BP 106/47
[2018-04-13] MEDS: ATORVASTATIN 10 MG TABLET GT SCH (22:01)
[2018-04-13] MEDS: IV NS 0.9% 1,000 ML IV PRN (22:04)
[2018-04-14] VITALS (7 sets, daily range): BP systolic 92–121; BP diastolic 44–58
[2018-04-14] MEDS ORDERED: PIPERACILLIN /TAZOBACTAM 3.375 G in IV D5W 50 ML IV SCH ×2
[2018-04-14] MEDS ORDERED: PIPERACILLIN /TAZOBACTAM 3.375 G VIAL IV ONE (00:25)
[2018-04-14] MEDS ORDERED: PIPERACILLIN /TAZOBACTAM 3.375 G in IV D5W 50 ML IV ONE (01:00)
[2018-04-14] MEDS: INSULIN REGULAR, HUMAN 100 UNIT/ML 3 ML VIAL SQ PRN ×5 (01:59→23:26)
[2018-04-14] MEDS: BLOOD SUGAR DIAGNOSTIC 1 EACH STRIP IN SCH ×5 (06:14→23:21)
--- NOTE | 2018-04-14 06:42 | NUR ---
RN NOTES ADMITTED PATIENT FROM ER VIA STRETCHER IN STABLE CONDITION AT 1930. VITAL SIGNS WNL. BREATHING EVEN AND UNLABORED. NO PHYSICAL MANIFESTATION OF PAIN OR DISCOMFORT. ALERT AND RESPONSIVE WITH CONFUSION. ON 02 VIA NASAL CANNULA AT 3LPM TOLERATING WELL. STARTED GTUBE FEEDING GLUCERNA AT 60ML/HR, NO RESIDUAL NOTED. GTUBE IN PLACE PATENT AND IN PLACE. BESS CATHETER DRAINING CLEAR YELLOW WITH NO FOUL ODOR URINE. NOTED CONGESTION AT ABOUT 0200. HEAD OF BED ELEVATED. SUCTION VIA NASAL LARGE AMOUNT OF THIN, YELLOWISH SECRETION. KEPT CLEAN AND DRY. WILL ENDORSE TO NEXT SHIFT FOR CONTINUITY OF CARE.
[2018-04-14 07:22] LABS: BASOPHILS % (AUTO) 0.1 % (0.0-2.0); HEMATOCRIT 24 % (39-51); HEMOGLOBIN 7.8 g/dL (13.5-17.5); LYMPHOCYTES # (AUTO) 1.1 /CMM (0.8-4.8); LYMPHOCYTES % (AUTO) 6.6 % (20.0-44.0); MEAN CORPUSCULAR HGB CONC 32 g/dl (31.0-36.0); MEAN CORPUSCULAR VOLUME 86 fL (80-96); MONOCYTES # (AUTO) 0.6 /CMM (0.1-1.30); MONOCYTES % (AUTO) 3.6 % (2.0-12.0); NEUTROPHILS # (AUTO) 15.5 /CMM (1.8-8.9); NEUTROPHILS % (AUTO) 89.7 % (43.0-81.0); PLATELET COUNT (AUTO) 467 /CMM (150-450); RED BLOOD CELL COUNT(AUTO) 2.85 MIL/uL (4.5-6.0); WHITE BLOOD COUNT (AUTO) 17.2 K/uL (4.3-11.0)
--- NOTE | 2018-04-14 07:27 | NUR ---
NIGHT ORDER SELECTOR OPENING NOTES BEDSIDE REPORT GIVEN BY NOC SHIFT. PATIENT A/O X1 ABLE TO AROUSE WITH VOICE AND TOUCH BUT LETHARGIC AND VERBALLY CONFUSED. ON 2LTRS NASAL CANNULA NO SIGNS OR SYMPTOMS OF RESPIRATORY DISTRESS OR ACUTE PAIN. SINUS RHYTHM ON REJI MONITOR. BESS CATH DRAINING CLEAR YELLOW URINE. IVF TO (L) HAND #20 GAUGE NS @ 75ML/HR. NO SIGNS OR SYMPTOMS OF HYPER/HYPOGLYCEMIA NOTED. SAFETY PRECAUTIONS IN PLACE BED IN LOW POSITION CALL LIGHT WITHIN REACH WILL CONT TO MONITOR LABS .
[2018-04-14] MEDS: PANTOPRAZOLE 40 MG/PACK PACK GT SCH (07:30)
[2018-04-14] MEDS ORDERED: ALBUTEROL FS 2.5 MG/0.5 ML VIAL.NEB NEB SCH (07:35)
[2018-04-14 07:36] LABS: CALCIUM, SERUM 8.5 mg/dL (8.5-10.1); CARBON DIOXIDE 28 mmol/L (21-32); CHLORIDE 107 mmol/L (98-107); CREATININE 0.9 mg/dL (0.6-1.3); GLUCOSE 188 mg/dL (74-106); MAGNESIUM 1.9 mg/dL (1.8-2.4); PHOSPHORUS 2.8 mg/dL (2.5-4.9); POTASSIUM 4.7 mmol/L (3.5-5.1); SODIUM SERUM 142 mmol/L (136-145); UREA NITROGEN, BLOOD 44 mg/dL (7-18)
[2018-04-14 07:50] LABS: HDL CHOLESTEROL 20 mg/dL (40-60); LDL 19 mg/dL (0-99); THYROID STIMULATING HORMONE 0.329 uIU/mL (0.358-3.74); TRIGLYCERIDES 45 mg/dL (30-150)
[2018-04-14 07:51] LABS: CHOLESTEROL < 50 mg/dL (<200)
[2018-04-14] MEDS: ALBUTEROL FS 2.5 MG/3 ML VIAL.NEB NEB SCH ×3 (08:01→19:56)
[2018-04-14] MEDS ORDERED: FEE PK DOSING 1 MIN EA MC ONE (08:09)
[2018-04-14] MEDS: AMLODIPINE BESYLATE 5 MG TABLET GT SCH (08:48)
[2018-04-14] MEDS: PROSTAT (PYXIS) 30 ML UDC GT SCH (08:48)
[2018-04-14] MEDS: MULTIVIT W/MINERALS 1 TAB TABLET GT SCH (08:48)
[2018-04-14] MEDS: ASCORBIC ACID 500 MG TABLET GT SCH (08:48)
[2018-04-14] MEDS: ZINC SULFATE 220 MG CAPSULE GT SCH (08:49)
[2018-04-14] MEDS: ASPIRIN 81 MG TAB.CHEW GT SCH (08:49)
[2018-04-14] MEDS: Fluoxetine 10 mg capsule PO SCH (08:49)
[2018-04-14] MEDS: HEPARIN SODIUM, PORCINE 5000 UNITS/1 ML VIAL SQ SCH ×2 (08:56→17:27)
[2018-04-14] MEDS: VANCOMYCIN 0.75 GM in IV D5W 250 ML IV SCH ×2 (09:00→20:17)
[2018-04-14] MEDS: DAKINS QUARTER STRENGTH (0.125%) 480 ML BOTTLE TOP SCH (11:43)
[2018-04-14] MEDS: PIPERACILLIN /TAZOBACTAM 3.375 G in IV D5W 100 ML IV SCH ×2 (12:00→20:08)
[2018-04-14] MEDS: IV NS 0.9% 1,000 ML IV PRN (13:30)
--- NOTE | 2018-04-14 19:04 | NUR ---
MOLD MOVER CLOSING NOTES BEDSIDE REPORT GIVEN TO NOC SHIFT. PATIENT A/O X1 ABLE TO AROUSE WITH VOICE AND TOUCH BUT VERBALLY CONFUSED. ON 2LTRS NASAL CANNULA NO SIGNS OR SYMPTOMS OF RESPIRATORY DISTRESS OR ACUTE PAIN. SINUS RHYTHM ON REJI MONITOR. BESS CATH DRAINING CLEAR YELLOW URINE. IVF TO (L) HAND #20 GAUGE NS @ 75ML/HR.(R) WRIST # 20 GAUGE BOTH WRAPPED WITH KERLIX TO PREVENT PULLING AT LINES ABDOMINAL BINDER IN PLACE FOR PULLING AT LINES WELL . NO SIGNS OR SYMPTOMS OF HYPER/HYPOGLYCEMIA NOTED. SAFETY PRECAUTIONS IN PLACE BED IN LOW POSITION CALL LIGHT WITHIN REACH WILL ENDORSE JT.
[2018-04-14] MEDS: ATORVASTATIN 10 MG TABLET GT SCH (21:26)
[2018-04-14] MEDS: DONEPEZIL 5 MG TABLET GT SCH (21:27)
[2018-04-14] MEDS: INSULIN GLARGINE, 100 UNIT/ML CARTRIDGE SQ SCH (23:25)
[2018-04-15] VITALS (7 sets, daily range): BP systolic 109–127; BP diastolic 49–59
[2018-04-15] MEDS: GLUCERNA 1.2 1,000 ML BOTTLE GT SCH (00:13)
[2018-04-15] MEDS: ALBUTEROL FS 2.5 MG/3 ML VIAL.NEB NEB SCH ×4 (02:20→19:57)
[2018-04-15] MEDS: PIPERACILLIN /TAZOBACTAM 3.375 G in IV D5W 100 ML IV SCH ×3 (03:44→20:02)
[2018-04-15] MEDS: BLOOD SUGAR DIAGNOSTIC 1 EACH STRIP IN SCH ×4 (05:27→23:40)
[2018-04-15] MEDS: INSULIN REGULAR, HUMAN 100 UNIT/ML 3 ML VIAL SQ PRN ×4 (05:28→23:44)
--- NOTE | 2018-04-15 07:10 | NUR ---
SERVICE PARTS COORDINATOR OPENING NOTES BEDSIDE REPORT GIVEN BY NOC SHIFT. PATIENT A/O X1 ABLE TO AROUSE WITH VOICE AND TOUCH VERBALLY CONFUSED. ON 2LTRS NASAL CANNULA NO SIGNS OR SYMPTOMS OF RESPIRATORY DISTRESS OR ACUTE PAIN. SINUS RHYTHM ON REJI MONITOR. BESS CATH DRAINING CLEAR YELLOW URINE. IVF TO (L) HAND #20 GAUGE NS @ 75ML/HR.SALINE LOCK TO (R) WRIST # 20 GAUGE. PATIENT VERY RESTLESS PULLING AT LINES AND TUBES. NO SIGNS OR SYMPTOMS OF HYPER/HYPOGLYCEMIA NOTED. SAFETY PRECAUTIONS IN PLACE BED IN LOW POSITION CALL LIGHT WITHIN REACH WILL CONT TO MONITOR LABS .
[2018-04-15] MEDS: PANTOPRAZOLE 40 MG/PACK PACK GT SCH (07:50)
[2018-04-15 08:25] LABS: BASOPHILS % (AUTO) 0.2 % (0.0-2.0); EOSINOPHILS % (AUTO) 0.1 % (0.0-6.0); HEMATOCRIT 24 % (39-51); HEMOGLOBIN 7.6 g/dL (13.5-17.5); LYMPHOCYTES # (AUTO) 1.1 /CMM (0.8-4.8); LYMPHOCYTES % (AUTO) 8.8 % (20.0-44.0); MEAN CORPUSCULAR HGB CONC 32 g/dl (31.0-36.0); MEAN CORPUSCULAR VOLUME 85 fL (80-96); MONOCYTES # (AUTO) 0.6 /CMM (0.1-1.30); MONOCYTES % (AUTO) 4.9 % (2.0-12.0); NEUTROPHILS # (AUTO) 10.9 /CMM (1.8-8.9); PLATELET COUNT (AUTO) 492 /CMM (150-450); RED BLOOD CELL COUNT(AUTO) 2.79 MIL/uL (4.5-6.0); WHITE BLOOD COUNT (AUTO) 12.7 K/uL (4.3-11.0)
[2018-04-15 08:32] LABS: CALCIUM, SERUM 8.5 mg/dL (8.5-10.1); CARBON DIOXIDE 29 mmol/L (21-32); CHLORIDE 107 mmol/L (98-107); GLUCOSE 269 mg/dL (74-106); POTASSIUM 4.3 mmol/L (3.5-5.1); SODIUM SERUM 145 mmol/L (136-145); UREA NITROGEN, BLOOD 33 mg/dL (7-18)
[2018-04-15] MEDS: MULTIVIT W/MINERALS 1 TAB TABLET GT SCH (09:01)
[2018-04-15] MEDS: HYDROCODONE/APAP 5/325MG 1 EACH TABLET GT PRN ×3 (09:01→20:04)
[2018-04-15] MEDS: Fluoxetine 10 mg capsule PO SCH (09:01)
[2018-04-15] MEDS: VANCOMYCIN 0.75 GM in IV D5W 250 ML IV SCH ×2 (09:01→21:31)
[2018-04-15] MEDS: ASPIRIN 81 MG TAB.CHEW GT SCH (09:01)
[2018-04-15] MEDS: ZINC SULFATE 220 MG CAPSULE GT SCH (09:01)
[2018-04-15] MEDS: AMLODIPINE BESYLATE 5 MG TABLET GT SCH (09:01)
[2018-04-15] MEDS: ASCORBIC ACID 500 MG TABLET GT SCH (09:01)
[2018-04-15] MEDS: PROSTAT (PYXIS) 30 ML UDC GT SCH (09:02)
[2018-04-15] MEDS: HEPARIN SODIUM, PORCINE 5000 UNITS/1 ML VIAL SQ SCH ×2 (09:05→17:00)
[2018-04-15] MEDS: DAKINS QUARTER STRENGTH (0.125%) 480 ML BOTTLE TOP SCH (09:06)
--- NOTE | 2018-04-15 11:17 | NUR ---
CHARGE NOTES TRANSFER TO MED SURG PER DR. GUTIÉRREZ
[2018-04-15] MEDS: NEOMY SULF/BACITRAC ZN/POLY 15 GM TUBE TP SCH ×2 (12:45→17:00)
--- NOTE | 2018-04-15 19:26 | NUR ---
RN MS CLOSING NOTES BEDSIDE REPORT GIVEN TO NOC SHIFT. PATIENT A/O X1 ABLE TO AROUSE WITH VOICE AND TOUCH BUT VERBALLY CONFUSED. ON 2LTRS NASAL CANNULA NO SIGNS OR SYMPTOMS OF RESPIRATORY DISTRESS OR ACUTE PAIN. SINUS RHYTHM ON REJI MONITOR. BESS CATH DRAINING CLEAR YELLOW URINE. IVF TO (L) HAND #20 GAUGE NS @ 75ML/HR.(R) WRIST # 20 GAUGE BOTH WRAPPED WITH KERLIX TO PREVENT PULLING AT LINES ABDOMINAL BINDER IN PLACE FOR PULLING AT LINES WELL MEDS ADMINISTERED AND TOLERATED ALL WOUND TREATMENTS DONE NO SIGNS OR SYMPTOMS OF HYPER/HYPOGLYCEMIA NOTED. SAFETY PRECAUTIONS IN PLACE BED IN WILL ENDORSE TO NOC
[2018-04-15] MEDS: ATORVASTATIN 10 MG TABLET GT SCH (21:18)
[2018-04-15] MEDS: DONEPEZIL 5 MG TABLET GT SCH (21:18)
[2018-04-15] MEDS: INSULIN GLARGINE, 100 UNIT/ML CARTRIDGE SQ SCH (23:44)
[2018-04-16] MEDS: HYDROCODONE/APAP 5/325MG 1 EACH TABLET GT PRN ×2 (00:38→05:08)
[2018-04-16] MEDS: IV NS 0.9% 1,000 ML IV PRN ×2 (01:49→20:44)
[2018-04-16] MEDS: ALBUTEROL FS 2.5 MG/3 ML VIAL.NEB NEB SCH ×4 (02:13→19:42)
[2018-04-16 04:00] VITALS: BP 127/59
[2018-04-16] MEDS: PIPERACILLIN /TAZOBACTAM 3.375 G in IV D5W 100 ML IV SCH ×3 (04:23→20:35)
[2018-04-16 04:31] VITALS: BP 127/59
[2018-04-16] MEDS: GLUCERNA 1.2 1,000 ML BOTTLE GT SCH (05:05)
[2018-04-16] MEDS: BLOOD SUGAR DIAGNOSTIC 1 EACH STRIP IN SCH ×4 (05:05→23:52)
[2018-04-16] MEDS: INSULIN REGULAR, HUMAN 100 UNIT/ML 3 ML VIAL SQ PRN ×5 (05:15→23:46)
[2018-04-16 05:30] VITALS: BP 127/85
[2018-04-16 07:08] LABS: BASOPHILS % (AUTO) 0.3 % (0.0-2.0); EOSINOPHILS % (AUTO) 0.8 % (0.0-6.0); HEMATOCRIT 22 % (39-51); HEMOGLOBIN 7.1 g/dL (13.5-17.5); LYMPHOCYTES # (AUTO) 1.2 /CMM (0.8-4.8); LYMPHOCYTES % (AUTO) 11.1 % (20.0-44.0); MEAN CORPUSCULAR HGB CONC 33 g/dl (31.0-36.0); MEAN CORPUSCULAR VOLUME 85 fL (80-96); MONOCYTES # (AUTO) 0.5 /CMM (0.1-1.30); MONOCYTES % (AUTO) 4.6 % (2.0-12.0); NEUTROPHILS # (AUTO) 8.8 /CMM (1.8-8.9); NEUTROPHILS % (AUTO) 83.2 % (43.0-81.0); PLATELET COUNT (AUTO) 462 /CMM (150-450); RED BLOOD CELL COUNT(AUTO) 2.53 MIL/uL (4.5-6.0); WHITE BLOOD COUNT (AUTO) 10.6 K/uL (4.3-11.0)
[2018-04-16 07:30] LABS: CALCIUM, SERUM 8.2 mg/dL (8.5-10.1); CARBON DIOXIDE 33 mmol/L (21-32); CHLORIDE 107 mmol/L (98-107); CREATININE 0.9 mg/dL (0.6-1.3); GLUCOSE 275 mg/dL (74-106); SODIUM SERUM 144 mmol/L (136-145); UREA NITROGEN, BLOOD 29 mg/dL (7-18)
--- NOTE | 2018-04-16 07:46 | NUR ---
WOUND CARE CONSULT WOUND CARE RECEIVED CONSULT FOR SACRAL ULCER. WOUND CARE WILL DEFER CONSULT AND ALL TREATMENT PLANS TO PLASTIC SURGICAL TEAM WELL DPM DR NELSON FOR HEEL ISSUES THEY ARE ALL FOLLOWING THIS PATIENT. PATIENT WITH VIRGILIO AT 11, ALL PRESSURE ULCER PREVENTION MEASURES ARE NOTED TO BE IN PLACE AT THIS TIME. WILL SEE PRN.
[2018-04-16 08:00] VITALS: BP 136/61
[2018-04-16] MEDS: HEPARIN SODIUM, PORCINE 5000 UNITS/1 ML VIAL SQ SCH ×2 (09:00→16:21)
[2018-04-16] MEDS: PANTOPRAZOLE 40 MG/PACK PACK GT SCH (09:00)
[2018-04-16] MEDS ORDERED: DAKINS QUARTER STRENGTH (0.125%) 480 ML BOTTLE TOP SCH (09:00)
[2018-04-16] MEDS: MULTIVIT W/MINERALS 1 TAB TABLET GT SCH (09:01)
[2018-04-16] MEDS: Fluoxetine 10 mg capsule PO SCH (09:01)
[2018-04-16] MEDS: ASPIRIN 81 MG TAB.CHEW GT SCH (09:01)
[2018-04-16] MEDS: ZINC SULFATE 220 MG CAPSULE GT SCH (09:01)
[2018-04-16] MEDS: ASCORBIC ACID 500 MG TABLET GT SCH (09:01)
[2018-04-16] MEDS: AMLODIPINE BESYLATE 5 MG TABLET GT SCH (09:01)
[2018-04-16] MEDS: VANCOMYCIN 0.75 GM in IV D5W 250 ML IV SCH ×2 (09:08→20:44)
--- NOTE | 2018-04-16 09:10 | NUR ---
MS RN INITIAL NOTES Patient in bed, awake, A/O x1 to self only, with confusion. Stable oxygen saturation on RA. Abdomen presence of Gtube, intact. Minimal gastric residual, on Gtube feeding infusing at 60ml/hr. Abdominal binder in place. IVF infusing, maintained safety. Will cont to monitor.
[2018-04-16] MEDS: PROSTAT (PYXIS) 30 ML UDC GT SCH (09:31)
[2018-04-16] MEDS: NEOMY SULF/BACITRAC ZN/POLY 15 GM TUBE TP SCH ×2 (09:39→16:22)
[2018-04-16] MEDS: DAKINS QUARTER STRENGTH (0.125%) 480 ML BOTTLE TOP SCH (10:25)
--- NOTE | 2018-04-16 10:27 | NUR ---
HGB. 7.1 HCT 22 PLT 462 Notified SCREENER PERFUMER Navi, heparin sq am dose held.
--- NOTE | 2018-04-16 11:14 | NUR ---
Patient appears anxious, agitated. Trying to pull out Gtube, patient is confused, hx of. dementia. Notified STEWARD/STEW[employer] CAR Navi, Ativan 1mg IVP x1 given, will reassess. Maintained safety, bed low and locked, lowest position.
[2018-04-16] MEDS ORDERED: LORAZEPAM INJ 2 MG/ML VIAL IV ONE (11:30)
[2018-04-16 16:00] VITALS: BP 121/50
[2018-04-16] MEDS: LORAZEPAM INJ 2 MG/ML VIAL IV PRN (17:46)
--- NOTE | 2018-04-16 19:10 | NUR ---
MS/RN INITIAL NOTES RECEIVED PT IN BED, ALERT BUT CONFUSED. ON 2L O2 VIA NC, NO SOB NOTED. NO C/O PAIN, IN NO SIGNS OF PAIN. WITH ONGOING IVF NS AT 75 MLS/HR INFUSING WELL ON (L) HAND G20 IV. (R) WRIST G20 HEPLOCK INTACT AND PATENT. F/C INTACT AND IN PLACED, DRAINING YELLOW COLOR URINE BY GRAVITY. GT INTACT AND IN PLACED WITH ONGOING GTF GLUCERNA AT 60 ML/HR, TOLERATING WELL. HOB ELEVATED. SAFETY MEASURES AND ASPIRATION PRECAUTION IN PLACED. CALL LIGHT WITHIN EASY REACH. WILL CONT TO MONITOR
--- NOTE | 2018-04-16 19:32 | NUR ---
MS RN CLOSING NOTES Patient appears calm at this time, Ativan 1mg IV PRN effective. Remains NPO, on Gtube feeding, tolerating well, no episode of vomiting. Sousa cath draining to gravity, bag off the floor. Urine specimen send to lab for test. Continued on IV antibiotic as planned, afebrile. Maintained safety, endorsed to night RN.
[2018-04-16 19:59] LABS: APPEARANCE,URINE CLOUDY (CLEAR); BILIRUBIN,URINE NEGATIVE (NEGATIVE); BLOOD, URINE 1+ Ery/uL (NEGATIVE); COLOR,URINE YELLOW (YELLOW); KETONES,URINE NEGATIVE (NEGATIVE); LEUKOCYTE ESTERASE ,URINE 3+ (NEGATIVE); NITRITE, URINE NEGATIVE (NEGATIVE); PROTEIN,URINE TRACE mg/dl (NEGATIVE); UGLUCOSE NEGATIVE (NEGATIVE); UROBILINOGEN,URINE 0.2 EU/dL (0.2)
[2018-04-16 20:00] VITALS: BP_SYST 132; BP_DIAS 63; BP_DIAS 84
[2018-04-16 20:06] LABS: BACTERIA,URINE Few /HPF (None Seen); WBC,URINE 51-80 /HPF (0-3)
[2018-04-16 20:07] LABS: SQUAMOUS EPITHELIAL CELL,UR Rare /HPF (None Seen); YEAST,URINE Few /HPF (None Seen)
[2018-04-16] MEDS: ATORVASTATIN 10 MG TABLET GT SCH (22:13)
[2018-04-16] MEDS: DONEPEZIL 5 MG TABLET GT SCH (22:13)
[2018-04-16] MEDS: INSULIN GLARGINE, 100 UNIT/ML CARTRIDGE SQ SCH (22:16)
[2018-04-17] MEDS: ALBUTEROL FS 2.5 MG/3 ML VIAL.NEB NEB SCH ×4 (01:30→19:51)
[2018-04-17 04:00] VITALS: BP 123/79
[2018-04-17] MEDS: PIPERACILLIN /TAZOBACTAM 3.375 G in IV D5W 100 ML IV SCH ×3 (04:13→21:20)
[2018-04-17] MEDS: GLUCERNA 1.2 1,000 ML BOTTLE GT SCH (05:04)
[2018-04-17] MEDS: BLOOD SUGAR DIAGNOSTIC 1 EACH STRIP IN SCH ×3 (05:41→17:18)
[2018-04-17] MEDS: INSULIN REGULAR, HUMAN 100 UNIT/ML 3 ML VIAL SQ PRN ×2 (05:48→17:18)
--- NOTE | 2018-04-17 06:59 | NUR ---
RN NOTES PT IN STABLE CONDITION. NO ACUTE CHANGES THROUGHOUT SHIFT. ALL NEEDS ANTICIPATED. SAFETY MEASURES AND ASPIRATION PRECAUTION MAINTAINED. ENDORSED TO AM SHIFT RN FOR JT
[2018-04-17 07:02] LABS: CALCIUM, SERUM 8.3 mg/dL (8.5-10.1); CARBON DIOXIDE 32 mmol/L (21-32); CHLORIDE 106 mmol/L (98-107); CREATININE 0.7 mg/dL (0.6-1.3); GLUCOSE 153 mg/dL (74-106); SODIUM SERUM 143 mmol/L (136-145); UREA NITROGEN, BLOOD 22 mg/dL (7-18)
[2018-04-17 07:09] LABS: BASOPHILS % (AUTO) 0.4 % (0.0-2.0); EOSINOPHILS % (AUTO) 2.4 % (0.0-6.0); HEMATOCRIT 24 % (39-51); HEMOGLOBIN 7.6 g/dL (13.5-17.5); LYMPHOCYTES # (AUTO) 1.4 /CMM (0.8-4.8); LYMPHOCYTES % (AUTO) 14.9 % (20.0-44.0); MEAN CORPUSCULAR HGB CONC 32 g/dl (31.0-36.0); MEAN CORPUSCULAR VOLUME 85 fL (80-96); MONOCYTES # (AUTO) 0.4 /CMM (0.1-1.30); MONOCYTES % (AUTO) 4.2 % (2.0-12.0); NEUTROPHILS # (AUTO) 7.5 /CMM (1.8-8.9); NEUTROPHILS % (AUTO) 78.1 % (43.0-81.0); PLATELET COUNT (AUTO) 507 /CMM (150-450); RED BLOOD CELL COUNT(AUTO) 2.77 MIL/uL (4.5-6.0); WHITE BLOOD COUNT (AUTO) 9.6 K/uL (4.3-11.0)
--- NOTE | 2018-04-17 07:20 | NUR ---
MS RN OPENING NOTES RECEIVED PT LYING ON BED.ALERT AND CONFUSED.NO RESTLESS NOTED.ON ROOM AIR,TOLERATING WELL.NO SOB AND ACUTE DISTRESS NOTED.NOTED WITH IV LINE ON LEFT HAND G 20 IS OUT AND ITS REMOVED AND PRESSURE DRESSING APPLIED.IV LINE IS ON RIGHT WRIST G20 IS PRESENT WITH IV FLUIDS.IV SITE IS CLEAN,DRY AND INTACT.NO INFILTRATION NOTED.SAFETY IS MAINTAINED AT ALL TIMES.BED IS IN LOW POSITION AND LOCKED.CALL LIGHT IS WITHIN REACH.WILL CONTINUE TO MONITOR THE OPT CLOSELY.
[2018-04-17 08:00] VITALS: BP 123/53
[2018-04-17] MEDS: ASCORBIC ACID 500 MG TABLET GT SCH (08:43)
[2018-04-17] MEDS: AMLODIPINE BESYLATE 5 MG TABLET GT SCH (08:43)
[2018-04-17] MEDS: MULTIVIT W/MINERALS 1 TAB TABLET GT SCH (08:43)
[2018-04-17] MEDS: ASPIRIN 81 MG TAB.CHEW GT SCH (08:43)
[2018-04-17] MEDS: PANTOPRAZOLE 40 MG/PACK PACK GT SCH (08:43)
[2018-04-17] MEDS: Fluoxetine 10 mg capsule PO SCH (08:44)
[2018-04-17] MEDS: ZINC SULFATE 220 MG CAPSULE GT SCH (08:47)
[2018-04-17] MEDS: VANCOMYCIN 0.75 GM in IV D5W 250 ML IV SCH ×2 (08:47→22:56)
[2018-04-17] MEDS: HEPARIN SODIUM, PORCINE 5000 UNITS/1 ML VIAL SQ SCH ×2 (08:49→17:17)
[2018-04-17] MEDS: DAKINS QUARTER STRENGTH (0.125%) 480 ML BOTTLE TOP SCH (08:50)
[2018-04-17] MEDS: NEOMY SULF/BACITRAC ZN/POLY 15 GM TUBE TP SCH ×2 (08:50→17:16)
[2018-04-17] MEDS: PROSTAT (PYXIS) 30 ML UDC GT SCH (08:57)
[2018-04-17] MEDS: LORAZEPAM INJ 2 MG/ML VIAL IV PRN (12:24)
--- NOTE | 2018-04-17 13:00 | NUR ---
MS RN NOTES IV ZOSYN IS NOT YET DELIVERED FROM THE PHARMACY,CALLED ANS SPOKE TO BELINDA,PHARMACIST SAID WILL DELIVER SOON.
[2018-04-17] MEDS: IV NS 0.9% 1,000 ML IV PRN (14:28)
[2018-04-17 16:00] VITALS: BP 119/67
[2018-04-17] MEDS: LACTOBACILLUS RHAMNOSUS GG 1 EACH CAP.SPRINK GT SCH (17:16)
--- NOTE | 2018-04-17 18:44 | NUR ---
MS RN CLOSING NOTES PT IS LYING ON BED,STAYS CALM.ON ROOM AIR,TOLERATING WELL.ALL PM MEDS ARE GIVEN.G TUBE AND FC IS IN PLACE AND IV LINE ON RIGHT WRIST IS INTACT.RESPIRATION IS EVEN AND NONLABORED.ENDORSED TO LEATHER BELT SHAPER RN FOR JT.
[2018-04-17 20:00] VITALS: BP 136/64
--- NOTE | 2018-04-17 20:59 | NUR ---
RN MS INITIAL NOTES RECEIVED PT ON BED.ALERT AND CONFUSED.ON ROOM AIR,TOLERATING WELL.NO SOB NOTED .IV LINE IS ON RIGHT WRIST G20 IS PRESENT WITH IV FLUIDS.IV SITE IS CLEAN,DRY AND INTACT.NO INFILTRATION NOTED.SAFETY IS MAINTAINED AT ALL TIMES.BED IS IN LOW POSITION AND LOCKED.CALL LIGHT IS WITHIN REACH.WILL CONTINUE TO MONITOR THE PT CLOSELY.
[2018-04-17] MEDS: ATORVASTATIN 10 MG TABLET GT SCH (21:21)
[2018-04-17] MEDS: DONEPEZIL 5 MG TABLET GT SCH (21:22)
[2018-04-17] MEDS: INSULIN GLARGINE, 100 UNIT/ML CARTRIDGE SQ SCH (21:38)
[2018-04-18] VITALS (7 sets, daily range): BP systolic 119–135; BP diastolic 54–68
[2018-04-18] MEDS: BLOOD SUGAR DIAGNOSTIC 1 EACH STRIP IN SCH ×4 (00:47→17:14)
[2018-04-18] MEDS: INSULIN REGULAR, HUMAN 100 UNIT/ML 3 ML VIAL SQ PRN ×3 (00:52→17:18)
[2018-04-18] MEDS: ALBUTEROL FS 2.5 MG/3 ML VIAL.NEB NEB SCH ×5 (01:21→20:08)
[2018-04-18] MEDS: PIPERACILLIN /TAZOBACTAM 3.375 G in IV D5W 100 ML IV SCH ×3 (04:13→20:30)
[2018-04-18] MEDS: IV NS 0.9% 1,000 ML IV PRN ×2 (04:14→21:45)
[2018-04-18] MEDS: GLUCERNA 1.2 1,000 ML BOTTLE GT SCH (04:59)
--- NOTE | 2018-04-18 06:04 | NUR ---
RN MS CLOSING NOTES ENDORSED PT ON BED.ALERT AND CONFUSED.ON ROOM AIR,TOLERATING WELL.NO SOB NOTED .IV LINE IS ON RIGHT WRIST G20 IS PRESENT WITH IV FLUIDS.IV SITE IS CLEAN,DRY AND INTACT.NO INFILTRATION NOTED.SAFETY IS MAINTAINED AT ALL TIMES.BED IS IN LOW POSITION AND LOCKED.CALL LIGHT IS WITHIN REACH.WILL CONTINUE TO MONITOR THE PT CLOSELY.
--- NOTE | 2018-04-18 07:41 | NUR ---
MS RN OPENING NOTES RECEIVED PT IN BED WITH HOB KEPT ELEVATED. PT IS ALERT, HOWEVER CONFUSED. CURRENTLY ON BILATERAL WRIST RESTRAINTS, CHECKED SKIN CIRCULATION. RESPIRATIONS ARE EVEN AND UNLABORED, NOT IN ANY ACUTE DISTRESS NOTED. NO FACIAL GRIMACING OR MOANING NOTED. YOLANDA MIDLINELINE INTACT, NO INFILTRATION NOTED. DRESSING KEPT CLEAN AND DRY. SAFETY MEASURES ARE IN PLACE. WILL MONITOR THROUGHOUT SHIFT FOR CONTINUITY OF CARE. Addendum: 04/18/18 at 0743 by ALEC FALLON RN INCORRECT CHART, PLEASE DISREGARD.
--- NOTE | 2018-04-18 07:43 | NUR ---
MS RN OPENING NOTES RECEIVED PT LAYING IN BED WITH HOB ELEVATED. PT IS ALERT, HOWEVER CONFUSED. RESPIRATIONS ARE EVEN AND UNLABORED, NOT IN ANY ACUTE DISTRESS NOTED. NO FACIAL GRIMACING OR MOANING NOTED. IV SITES ARE INTACT TO R WRIST AND L HAND. NO INFILTRATION NOTED. DRESSING KEPT CLEAN AND DRY. CURRENTLY ON GLUCERNA @60ML/HR, TOLERATING WELL. GT INTACT, FREE OF TUBINGS. NO RESIDUAL NOTED. SAFETY MEASURES ARE IN PLACE. WILL MONITOR THROUGHOUT SHIFT FOR CONTINUITY OF CARE.
[2018-04-18 08:39] LABS: BASOPHILS % (AUTO) 0.4 % (0.0-2.0); EOSINOPHILS % (AUTO) 3.1 % (0.0-6.0); HEMATOCRIT 24 % (39-51); HEMOGLOBIN 7.6 g/dL (13.5-17.5); LYMPHOCYTES # (AUTO) 2.3 /CMM (0.8-4.8); LYMPHOCYTES % (AUTO) 28.7 % (20.0-44.0); MEAN CORPUSCULAR HGB CONC 32 g/dl (31.0-36.0); MEAN CORPUSCULAR VOLUME 85 fL (80-96); MONOCYTES # (AUTO) 0.4 /CMM (0.1-1.30); NEUTROPHILS % (AUTO) 62.8 % (43.0-81.0); PLATELET COUNT (AUTO) 492 /CMM (150-450); RED BLOOD CELL COUNT(AUTO) 2.79 MIL/uL (4.5-6.0); WHITE BLOOD COUNT (AUTO) 8.1 K/uL (4.3-11.0)
[2018-04-18 08:57] LABS: CALCIUM, SERUM 8.1 mg/dL (8.5-10.1); CARBON DIOXIDE 31 mmol/L (21-32); CHLORIDE 104 mmol/L (98-107); CREATININE 0.7 mg/dL (0.6-1.3); GLUCOSE 150 mg/dL (74-106); POTASSIUM 4.3 mmol/L (3.5-5.1); SODIUM SERUM 139 mmol/L (136-145); UREA NITROGEN, BLOOD 22 mg/dL (7-18)
[2018-04-18] MEDS: LACTOBACILLUS RHAMNOSUS GG 1 EACH CAP.SPRINK GT SCH ×2 (08:58→16:35)
[2018-04-18] MEDS: ZINC SULFATE 220 MG CAPSULE GT SCH (08:58)
[2018-04-18] MEDS: MULTIVIT W/MINERALS 1 TAB TABLET GT SCH (08:58)
[2018-04-18] MEDS: PANTOPRAZOLE 40 MG/PACK PACK GT SCH (08:58)
[2018-04-18] MEDS: ASPIRIN 81 MG TAB.CHEW GT SCH (08:58)
[2018-04-18] MEDS: ASCORBIC ACID 500 MG TABLET GT SCH (08:58)
[2018-04-18] MEDS: AMLODIPINE BESYLATE 5 MG TABLET GT SCH (08:58)
[2018-04-18] MEDS: Fluoxetine 10 mg capsule PO SCH (08:58)
[2018-04-18] MEDS: HEPARIN SODIUM, PORCINE 5000 UNITS/1 ML VIAL SQ SCH ×2 (09:00→16:46)
[2018-04-18] MEDS: VANCOMYCIN 0.75 GM in IV D5W 250 ML IV SCH ×2 (09:00→09:21)
[2018-04-18] MEDS: DAKINS QUARTER STRENGTH (0.125%) 480 ML BOTTLE TOP SCH (09:03)
[2018-04-18] MEDS: NEOMY SULF/BACITRAC ZN/POLY 15 GM TUBE TP SCH ×2 (09:03→16:46)
--- NOTE | 2018-04-18 09:09 | NUR ---
MS RN NOTES-- NOTIFIED IKE FROM PHARMACY RE: VANCO TROUGH OF 20. PER IKE, HOLD DOSE.
--- NOTE | 2018-04-18 09:11 | NUR ---
MS RN NOTES-- RECEIVED A CALL FROM IKE IN PHARMACY, "OKAY TO GIVE VANCO DOSE."
[2018-04-18] MEDS ORDERED: GLUCERNA 1.2 1,000 ML BOTTLE GT SCH (14:31)
[2018-04-18] MEDS: LORAZEPAM INJ 2 MG/ML VIAL IV PRN (16:35)
--- NOTE | 2018-04-18 16:46 | NUR ---
MS RN NOTES-- CLARIFIED WITH WILNER RE: HEPARIN DOSE. PER WILNER, "GO AHEAD AND ADMINISTER." NO BLEEDING NOTED AT THIS TIME. WILL CONTINUE TO MONITOR.
--- NOTE | 2018-04-18 18:49 | NUR ---
MS RN CLOSING NOTES ALL DUE MEDS GIVEN, NEEDS MET AND ANTICIPATED. PT IS A/O X1, CONFUSED. PT IS AFEBRILE. RESPIRATIONS ARE EVEN AND UNLABORED, NOT IN ANY ACUTE DISTRESS NOTED. NO FACIAL GRIMACING OR MOANING NOTED. BESS CATH INTACT, TUBING IS FREE OF KINKS. URINE REMAINS YELLOW, NO SEDIMENTS OR HEMATURIA NOTED. DRESSING CHANGE DONE TO SACRAL, TOLERATED WELL. GT IS INTACT, NO RESIDUAL NOTED, RUNNING AT 65ML/HR,. HOB KEPT ELEVATED. SAFETY MEASURES ARE IN PLACE. BED IS IN ITS LOWEST AND LOCKED POSITION. BILATERAL WRIST RESTRAINS REMAINS ON PT CONTINUES TO PULL TUBINGS. WILL ENDORSE TO NEXT SHIFT FOR CONTINUITY OF CARE.
--- NOTE | 2018-04-18 19:00 | NUR ---
RN NOTES RECEIVED PATIENT LETHARGIC( RECENTLY SEDATED,GIVEN ATIVAN @1635),AWAKENS TO TACTILE STIMULI BUT EASILY FALLS BACK TO SLEEP,NOT IN ANY DISTRESS.ON ROOM AIR ,O2 SATURATION CLOSELY MONITORED.ASPIRATION PRECAUTION OBSERVED. WITH ON GOING FEEDING VIA G TUBE.ON BILATERAL SOFT WRIST RESTRAINTS TO PREVENT PULLING LINES AND G TUBE. COMFORT CARE DONE.
[2018-04-18] MEDS: VANCOMYCIN 500 MG in IV D5W 100 ML IV SCH (20:35)
[2018-04-18] MEDS ORDERED: FLUCONAZOLE (100 MG) 100 MG TABLET PO SCH (21:00)
[2018-04-18] MEDS: ATORVASTATIN 10 MG TABLET GT SCH (21:48)
[2018-04-18] MEDS: DONEPEZIL 5 MG TABLET GT SCH (21:49)
[2018-04-18] MEDS: INSULIN GLARGINE, 100 UNIT/ML CARTRIDGE SQ SCH (21:51)
--- NOTE | 2018-04-19 | NUR ---
RN NOTES STILL DROWSY BUT EASILY AROUSABLE,NOT IN ANY DSITRESS,REMAINS CALM BUT GETS AGITATED AND UNCOOPERATIVE WHEN AWAKENS.MAINTAINED ON B ILATERAL SOFT WRIST RESTRAINTS.
[2018-04-19] MEDS: BLOOD SUGAR DIAGNOSTIC 1 EACH STRIP IN SCH ×4 (00:14→17:18)
[2018-04-19] MEDS: INSULIN REGULAR, HUMAN 100 UNIT/ML 3 ML VIAL SQ PRN ×4 (00:17→22:58)
[2018-04-19] MEDS: ALBUTEROL FS 2.5 MG/3 ML VIAL.NEB NEB SCH ×4 (01:34→19:43)
--- NOTE | 2018-04-19 04:00 | NUR ---
RN NOTES MORE ALERT,REMAINS UNCOOPERATIVE,NOT IN ANY DISTRESS,ON ROOM AIR.
[2018-04-19] MEDS: PIPERACILLIN /TAZOBACTAM 3.375 G in IV D5W 100 ML IV SCH ×3 (04:07→20:52)
[2018-04-19 06:24] LABS: BASOPHILS % (AUTO) 0.7 % (0.0-2.0); EOSINOPHILS % (AUTO) 4.2 % (0.0-6.0); HEMATOCRIT 22 % (39-51); HEMOGLOBIN 7.1 g/dL (13.5-17.5); LYMPHOCYTES # (AUTO) 1.2 /CMM (0.8-4.8); LYMPHOCYTES % (AUTO) 19.4 % (20.0-44.0); MEAN CORPUSCULAR HGB CONC 33 g/dl (31.0-36.0); MEAN CORPUSCULAR VOLUME 84 fL (80-96); MONOCYTES # (AUTO) 0.3 /CMM (0.1-1.30); MONOCYTES % (AUTO) 4.3 % (2.0-12.0); NEUTROPHILS # (AUTO) 4.6 /CMM (1.8-8.9); NEUTROPHILS % (AUTO) 71.4 % (43.0-81.0); PLATELET COUNT (AUTO) 451 /CMM (150-450); RED BLOOD CELL COUNT(AUTO) 2.56 MIL/uL (4.5-6.0); WHITE BLOOD COUNT (AUTO) 6.4 K/uL (4.3-11.0)
[2018-04-19 06:44] LABS: CALCIUM, SERUM 7.8 mg/dL (8.5-10.1); CARBON DIOXIDE 28 mmol/L (21-32); CHLORIDE 102 mmol/L (98-107); CREATININE 0.7 mg/dL (0.6-1.3); GLUCOSE 160 mg/dL (74-106); SODIUM SERUM 136 mmol/L (136-145); UREA NITROGEN, BLOOD 22 mg/dL (7-18)
--- NOTE | 2018-04-19 07:00 | NUR ---
MS RN NOTES RECEIVED REPORT FROM PM NURSE. PT IN BED, ASLEEP BUT AROUSABLE TO LIGHT PAIN. PT IS ON ROOM AIR. O2 SAT WNL. NO S/SX OF DISTRESS NOTED. IV'S PATENT/ NO S/SX OF INFECTION. FLUSHED. GT ASPIRATED/ NO RESIDUAL AND FLUSHED. HOB ELEVATED TO 30 DEG. LUNG SOUNDS DIMINSHED. BOWEL SOUNDS ACTIVE ALL QUADS. HR REGULAR. BESS CATH DRAINING YELLOW URINE. SOFT WRIST RESTRAINTS IN PLACE. PT IS STILL CONFUSED AND PULLING ON LINES. BED IN LOCKED/LOW POSITION. CALL LIGHT IN REACH. WILL CONT TO MONITOR.
[2018-04-19 08:00] VITALS: BP 138/63
[2018-04-19] MEDS: Fluoxetine 10 mg capsule PO SCH (08:54)
[2018-04-19] MEDS: MULTIVIT W/MINERALS 1 TAB TABLET GT SCH (08:55)
[2018-04-19] MEDS: AMLODIPINE BESYLATE 5 MG TABLET GT SCH (08:55)
[2018-04-19] MEDS: ASCORBIC ACID 500 MG TABLET GT SCH (08:55)
[2018-04-19] MEDS: ZINC SULFATE 220 MG CAPSULE GT SCH (08:56)
[2018-04-19] MEDS: ASPIRIN 81 MG TAB.CHEW GT SCH (08:56)
[2018-04-19] MEDS: LACTOBACILLUS RHAMNOSUS GG 1 EACH CAP.SPRINK GT SCH ×2 (08:56→17:14)
[2018-04-19] MEDS: PANTOPRAZOLE 40 MG/PACK PACK GT SCH (08:57)
[2018-04-19] MEDS: HEPARIN SODIUM, PORCINE 5000 UNITS/1 ML VIAL SQ SCH ×2 (08:57→17:14)
--- NOTE | 2018-04-19 09:01 | NUR ---
MS RN NOTES PER PHARMACY, OK TO GIVE VANCO PER LEVEL
[2018-04-19] MEDS: VANCOMYCIN 500 MG in IV D5W 100 ML IV SCH ×2 (09:11→21:15)
[2018-04-19] MEDS: PROSOURCE / PROSTAT (PYXIS) 30 ML UDC GT SCH (09:11)
[2018-04-19] MEDS: DAKINS QUARTER STRENGTH (0.125%) 480 ML BOTTLE TOP SCH (09:13)
[2018-04-19] MEDS: NEOMY SULF/BACITRAC ZN/POLY 15 GM TUBE TP SCH ×2 (09:13→17:15)
[2018-04-19 10:00] VITALS: BP 138/63
[2018-04-19 12:00] VITALS: BP 130/63
[2018-04-19] MEDS: IV NS 0.9% 1,000 ML IV PRN (12:26)
[2018-04-19] MEDS: LORAZEPAM INJ 2 MG/ML VIAL IV PRN (15:43)
[2018-04-19 16:00] VITALS: BP_SYST 127; BP_SYST 130; BP_DIAS 63; BP_DIAS 72
[2018-04-19 20:00] VITALS: BP 123/67
[2018-04-19] MEDS: DONEPEZIL 5 MG TABLET GT SCH (21:16)
[2018-04-19] MEDS: ATORVASTATIN 10 MG TABLET GT SCH (21:16)
[2018-04-19] MEDS: VORICONAZOLE 200 MG TABLET PO SCH (21:17)
[2018-04-19] MEDS: INSULIN GLARGINE, 100 UNIT/ML CARTRIDGE SQ SCH (22:57)
[2018-04-20] MEDS: BLOOD SUGAR DIAGNOSTIC 1 EACH STRIP IN SCH ×4 (00:10→17:40)
[2018-04-20] MEDS: INSULIN REGULAR, HUMAN 100 UNIT/ML 3 ML VIAL SQ PRN ×3 (00:15→17:41)
[2018-04-20] MEDS: LORAZEPAM INJ 2 MG/ML VIAL IV PRN (00:17)
[2018-04-20] MEDS: ALBUTEROL FS 2.5 MG/3 ML VIAL.NEB NEB SCH ×4 (01:47→19:18)
[2018-04-20 04:00] VITALS: BP 120/60
[2018-04-20] MEDS: PIPERACILLIN /TAZOBACTAM 3.375 G in IV D5W 100 ML IV SCH ×3 (04:51→20:36)
[2018-04-20] MEDS: IV NS 0.9% 1,000 ML IV PRN ×2 (04:55→20:41)
--- NOTE | 2018-04-20 07:15 | NUR ---
MS RN OPENING NOTES RECEIVED PT LAYING IN BED, WITH HOB ELEVATED. PT IS ALERT, HOWEVER CONFUSED. PT IS ON ROOM AIR, SATURATING WELL. RR EVEN AND UNLABORED, NO SOB NOTED. IV SITES ARE INTACT TO R WRIST AND L HAND 20G. NO INFILTRATION NOTED. DRESSING KEPT CLEAN AND DRY. CURRENTLY ON GLUCERNA @65ML/HR, TOLERATING WELL, MINIMAL RESIDUAL NOTED. GTUBE IN PLACED. FC IS IN PLACE WITH CLOUDY SEDIMENTATION. BED LOCKED AND LOW, CALL LIGHT WITHIN REACH, WILL MONITOR THROUGHOUT SHIFT FOR CONTINUITY OF CARE.
[2018-04-20 07:30] LABS: CALCIUM, SERUM 7.8 mg/dL (8.5-10.1); CARBON DIOXIDE 27 mmol/L (21-32); CHLORIDE 102 mmol/L (98-107); CREATININE 0.7 mg/dL (0.6-1.3); GLUCOSE 102 mg/dL (74-106); POTASSIUM 4.4 mmol/L (3.5-5.1); SODIUM SERUM 135 mmol/L (136-145); UREA NITROGEN, BLOOD 28 mg/dL (7-18)
[2018-04-20 08:00] VITALS: BP 113/53
[2018-04-20] MEDS: Fluoxetine 10 mg capsule PO SCH (08:44)
[2018-04-20] MEDS: LACTOBACILLUS RHAMNOSUS GG 1 EACH CAP.SPRINK GT SCH ×2 (08:44→16:34)
[2018-04-20] MEDS: MULTIVIT W/MINERALS 1 TAB TABLET GT SCH (08:44)
[2018-04-20] MEDS: ZINC SULFATE 220 MG CAPSULE GT SCH (08:44)
[2018-04-20] MEDS: ASPIRIN 81 MG TAB.CHEW GT SCH (08:44)
[2018-04-20] MEDS: AMLODIPINE BESYLATE 5 MG TABLET GT SCH (08:45)
[2018-04-20] MEDS: ASCORBIC ACID 500 MG TABLET GT SCH (08:45)
[2018-04-20] MEDS: HEPARIN SODIUM, PORCINE 5000 UNITS/1 ML VIAL SQ SCH ×2 (08:46→16:38)
[2018-04-20] MEDS: PROSOURCE / PROSTAT (PYXIS) 30 ML UDC GT SCH (08:50)
[2018-04-20] MEDS: PANTOPRAZOLE 40 MG/PACK PACK GT SCH (08:53)
[2018-04-20] MEDS: VORICONAZOLE 200 MG TABLET PO SCH ×2 (08:53→20:36)
[2018-04-20] MEDS: VANCOMYCIN 500 MG in IV D5W 100 ML IV SCH ×2 (08:54→20:34)
[2018-04-20] MEDS: GLUCERNA 1.2 1,000 ML BOTTLE GT PRN (08:57)
[2018-04-20] MEDS: DAKINS QUARTER STRENGTH (0.125%) 480 ML BOTTLE TOP SCH (08:57)
[2018-04-20] MEDS: NEOMY SULF/BACITRAC ZN/POLY 15 GM TUBE TP SCH ×2 (08:57→16:39)
[2018-04-20 16:00] VITALS: BP_SYST 105; BP_SYST 93; BP_DIAS 44
[2018-04-20 16:20] VITALS: BP 105/55
--- NOTE | 2018-04-20 16:20 | NUR ---
BP @1600 IS 93/44.PLACED PT ON [place] POSITION.RECHECKED BP,IT IS 105/55.PT IS COMFORTABLE ON BED.
[2018-04-20] MEDS: HYDROCODONE/APAP 5/325MG 1 EACH TABLET GT PRN (16:35)
--- NOTE | 2018-04-20 18:39 | NUR ---
MS RN CLOSING NOTES PT LAYING IN BED, WITH HOB ELEVATED. PT IS SLEEPING, ON ROOM AIR, SATURATING WELL. RR EVEN AND UNLABORED, NO SOB NOTED. IV SITES ARE INTACT TO R WRIST AND L HAND 20G. NO INFILTRATION NOTED. DRESSING KEPT CLEAN AND DRY. GTUBE IN PLACE, CURRENTLY ON GLUCERNA @65ML/HR, TOLERATING WELL, MINIMAL RESIDUAL NOTED. FC IS IN PLACE WITH CLOUDY SEDIMENTATION. BED LOCKED AND LOW, CALL LIGHT WITHIN REACH, BED RAILS UP X4, BILATERAL SOFT RESTRAINTS ARE PRESENT, SKIN CHECKED AND INTACT, VITAL SIGNS CHECKED AND WITHIN NORMAL LIMITS, WILL ENDORSE TO PYTHON JAVA DEVELOPER NURSE FOR CONTINUITY OF CARE.
--- NOTE | 2018-04-20 19:36 | NUR ---
MS RN NOTE REPORT GIVEN BEDSIDE. RECEIVED PATIENT IN BED HOB HIGH, A/0 X 1. PATIENT DENIES DISCOMFORT AT THIS TIME. NO S/S OF DISTRESS. PATIENT BREATHING EVEN AND UNLABORED. IV'S INTACT, BESS CATHETER INTACT. BL SOFT WRIST RESTRAINTS IN PLACE, SKIN AND CIRCULATION CHECKED. SKIN INTACT, WNL. RN WILL CONTINUE TO MONITOR AND RENDER CARE ORDERED.
[2018-04-20 20:00] VITALS: BP 103/52
[2018-04-20] MEDS: DONEPEZIL 5 MG TABLET GT SCH (22:20)
[2018-04-20] MEDS: INSULIN GLARGINE, 100 UNIT/ML CARTRIDGE SQ SCH (22:20)
[2018-04-20] MEDS: ATORVASTATIN 10 MG TABLET GT SCH (22:20)
--- NOTE | 2018-04-20 23:00 | NUR ---
MS RN NOTE PATIENT TURNED AND REPOSITIONED, ORAL CARE DONE, RESIDUAL CHECKED 10 ML, NO S/S OF DISTRESS.
[2018-04-21] VITALS (9 sets, daily range): BP systolic 90–144; BP diastolic 38–87
[2018-04-21] MEDS: BLOOD SUGAR DIAGNOSTIC 1 EACH STRIP IN SCH ×4 (00:40→18:00)
[2018-04-21] MEDS: INSULIN REGULAR, HUMAN 100 UNIT/ML 3 ML VIAL SQ PRN ×3 (00:42→11:55)
[2018-04-21] MEDS: ALBUTEROL FS 2.5 MG/3 ML VIAL.NEB NEB SCH ×4 (01:21→20:24)
--- NOTE | 2018-04-21 02:00 | NUR ---
MS RN NOTE PATIENT RELEASED FROM RESTRAINTS FOR 15 MIN, PATIENT BATHED TURNED AND REPOSITIONED.
[2018-04-21] MEDS: PIPERACILLIN /TAZOBACTAM 3.375 G in IV D5W 100 ML IV SCH (05:27)
[2018-04-21 06:48] LABS: BASOPHILS # (AUTO) 0.1 /CMM (0.0-0.2); BASOPHILS % (AUTO) 1.2 % (0.0-2.0); EOSINOPHILS % (AUTO) 1.7 % (0.0-6.0); LYMPHOCYTES # (AUTO) 1.1 /CMM (0.8-4.8); LYMPHOCYTES % (AUTO) 16.6 % (20.0-44.0); MEAN CORPUSCULAR HGB CONC 33 g/dl (31.0-36.0); MEAN CORPUSCULAR VOLUME 84 fL (80-96); MONOCYTES # (AUTO) 0.4 /CMM (0.1-1.30); MONOCYTES % (AUTO) 6.1 % (2.0-12.0); NEUTROPHILS # (AUTO) 4.9 /CMM (1.8-8.9); NEUTROPHILS % (AUTO) 74.4 % (43.0-81.0); PLATELET COUNT (AUTO) 477 /CMM (150-450); RED BLOOD CELL COUNT(AUTO) 2.17 MIL/uL (4.5-6.0); WHITE BLOOD COUNT (AUTO) 6.6 K/uL (4.3-11.0)
[2018-04-21 06:55] LABS: HEMATOCRIT 18 % (39-51)
[2018-04-21 06:57] LABS: CALCIUM, SERUM 8.1 mg/dL (8.5-10.1); CREATININE 0.8 mg/dL (0.6-1.3); GLUCOSE 191 mg/dL (74-106); UREA NITROGEN, BLOOD 34 mg/dL (7-18)
[2018-04-21 07:01] LABS: CARBON DIOXIDE 30 mmol/L (21-32); CHLORIDE 103 mmol/L (98-107); POTASSIUM 4.8 mmol/L (3.5-5.1); SODIUM SERUM 138 mmol/L (136-145)
[2018-04-21 08:32] LABS: BAND % (MANUAL) 1 % (0.0-5.0); EOSINOPHILS % (MANUAL) 4 % (0-4); LYMPHOCYTES % (MANUAL) 13 % (16-48); MONOCYTES % (MANUAL) 6 % (0-11.0); NEUTROPHILS % (MANUAL) 76 (42-76)
[2018-04-21] MEDS: VANCOMYCIN 500 MG in IV D5W 100 ML IV SCH ×2 (10:06→21:27)
[2018-04-21] MEDS: ASPIRIN 81 MG TAB.CHEW GT SCH (10:12)
[2018-04-21] MEDS: Fluoxetine 10 mg capsule PO SCH (10:14)
[2018-04-21] MEDS: ZINC SULFATE 220 MG CAPSULE GT SCH (10:14)
[2018-04-21] MEDS: ASCORBIC ACID 500 MG TABLET GT SCH (10:14)
[2018-04-21] MEDS: LACTOBACILLUS RHAMNOSUS GG 1 EACH CAP.SPRINK GT SCH ×2 (10:14→19:07)
[2018-04-21] MEDS: AMLODIPINE BESYLATE 5 MG TABLET GT SCH (10:14)
[2018-04-21] MEDS: MULTIVIT W/MINERALS 1 TAB TABLET GT SCH (10:14)
[2018-04-21] MEDS: PANTOPRAZOLE 40 MG/PACK PACK GT SCH (10:14)
[2018-04-21] MEDS: PROSOURCE / PROSTAT (PYXIS) 30 ML UDC GT SCH (10:15)
[2018-04-21] MEDS: NEOMY SULF/BACITRAC ZN/POLY 15 GM TUBE TP SCH ×2 (10:29→19:06)
[2018-04-21] MEDS: DAKINS QUARTER STRENGTH (0.125%) 480 ML BOTTLE TOP SCH (10:30)
[2018-04-21] MEDS: VORICONAZOLE 200 MG TABLET PO SCH ×2 (10:31→21:28)
[2018-04-21] MEDS: ZOSYN IVPB 3.375 G in IV D5W 50ml IV SCH ×3 (11:42→23:36)
--- NOTE | 2018-04-21 19:00 | NUR ---
MS RN NOTE PATIENT RECEIVED BEDSIDE MID BLOOD TRANSFUSION. VITALS WERE DONE INITIALLY 15 MINUTES POST START. NO OTHER VITAL DONE PRIOR TO MY RECEIVING OF THE PATIENT. VITALS TAKEN IMMEDIATELY AFTER REPORT. PATIENT STABLE NO S/S OF DISTRESS. BLOOD TRANSFUSING WITH NO S/S OF INFILTRATION. NO S/S OF RESP DISTRESS OR CHEST PAIN. PATIENT OXYGENTATING WELL. RN WILL CONTINUE TO MONITOR PATIENT .
--- NOTE | 2018-04-21 20:03 | NUR ---
MS RN NOTE IPRBC FINISHED INFUSING. V/S STABLE RN WILL CONTINUE TO MONITOR.
[2018-04-21] MEDS: ATORVASTATIN 10 MG TABLET GT SCH (21:28)
[2018-04-21] MEDS: DONEPEZIL 5 MG TABLET GT SCH (21:28)
[2018-04-21] MEDS: INSULIN GLARGINE, 100 UNIT/ML CARTRIDGE SQ SCH (21:32)
[2018-04-21] MEDS: GLUCERNA 1.2 1,000 ML BOTTLE GT PRN (23:35)
--- NOTE | 2018-04-21 23:45 | NUR ---
MS RN NOTE TRANSFER OF CARE GIVEN TO MAYRA. PATIENT STABLE NO S.S OF DISTRESS. RESTRAINTS IN PLACE FOR PULLING AT LINES. MAYRA FOR JT.
[2018-04-22] VITALS: BP 112/59
--- NOTE | 2018-04-22 00:01 | NUR ---
MS RN NOTE REPORT RECEIVED FROM NEFTALI HANSEN TO CONTINUE TO CARE FOR THE PT. PT IN BED A/O X 1 CONFUSED. NO SOB, NO DISTRESS OR DISCOMFORT NOTED. DENIES PAIN. BLOODSUGAR CHECKED 118. ALSO HUNGED ZOSYN 3.375 G IV ORDERED. ALSO HUNGED GTF GLUCERNA1.2 AND INFUSE AT 65 ML/HR. 0 ML RESIDUAL NOTED. NO INFILTRATION NOTED ON THE IV SITE. BILATERAL WRIST WITH SOFT RESTRAINTS ON, PT IS STILL TRYING TO REMOVE TUBINGS. BED BATH GIVEN. WOUND TX GIVEN. SIDE RAILS UP X 3 AND CALL LIGHT WITHIN REACH. REPOSITION HIM FOR SKIN MANAGEMENT AND COMFORT. CONTINUE TO MONITOR HIM.
[2018-04-22] MEDS: BLOOD SUGAR DIAGNOSTIC 1 EACH STRIP IN SCH ×5 (00:13→22:40)
[2018-04-22] MEDS: ALBUTEROL FS 2.5 MG/3 ML VIAL.NEB NEB SCH ×4 (01:40→19:10)
--- NOTE | 2018-04-22 02:30 | NUR ---
MS RN NOTE REPORT GIVEN TO NURSE SULLIVAN FOR CONTINUE TO CARE.
--- NOTE | 2018-04-22 02:35 | NUR ---
MS RN NOTE: RECEIVED REPORT FROM MAYRA, PATIENT RESTING IN BED, NO ACUTE DISTRESS NOTED. WILL CONTINUE TO MONITOR.
[2018-04-22] MEDS: ZOSYN IVPB 3.375 G in IV D5W 50ml IV SCH ×4 (05:20→23:07)
--- NOTE | 2018-04-22 06:15 | NUR ---
MS RN NOTE: PATIENT RESTING IN BED, NO ACUTE DISTRESS NOTED. BREATHING EVEN AND UNLABORED, NO SOB NOTED. BESS CATHETER DRAINED 1650ML OF CLEAR YELLOW URINE. G-TUBE IN PLACE, INFUSING GLUCERNA AT 65ML/HR, HOB ELEVATED. PATIENT BLOOD SUGAR LEVEL 164MG/DL, PATIENT TO RECEIVE 3 UNITS OF INSULIN PER SLIDING SCALE, NO S/S OF HYPO/HYPERGLYCEMIA NOTED. BED LOCKED AND IN LOWEST POSITION, CALL LIGHT IN REACH. WILL ENDORSE TO DAY NURSE TO CONTINUE WITH PLAN OF CARE.
[2018-04-22] MEDS: IV NS 0.9% 1,000 ML IV PRN ×2 (06:32→08:58)
[2018-04-22] MEDS: INSULIN REGULAR, HUMAN 100 UNIT/ML 3 ML VIAL SQ PRN ×4 (06:55→22:40)
--- NOTE | 2018-04-22 07:10 | NUR ---
MS RN OPENING NOTES RECEIVED PT LAYING IN BED, WITH HOB ELEVATED, PT IS ALERT, HOWEVER CONFUSED, PT IS ON ROOM AIR, SATURATING WELL, RR EVEN AND UNLABORED, NO SOB NOTED, IV SITES ARE INTACT TO R WRIST 20G AND L HAND 20G, NO INFILTRATION NOTED, DRESSING KEPT CLEAN AND DRY, GTUBE IN PLACE, CURRENTLY ON GLUCERNA @65ML/HR, TOLERATING WELL, MINIMAL RESIDUAL NOTED, FC IS IN PLACE WITH CLOUDY SEDIMENTATION, BED LOCKED AND LOW, CALL LIGHT WITHIN REACH, WILL MONITOR THROUGHOUT SHIFT FOR CONTINUITY OF CARE.
[2018-04-22 07:15] LABS: BASOPHILS # (AUTO) 0.1 /CMM (0.0-0.2); BASOPHILS % (AUTO) 1.2 % (0.0-2.0); EOSINOPHILS % (AUTO) 1.3 % (0.0-6.0); LYMPHOCYTES # (AUTO) 1.4 /CMM (0.8-4.8); LYMPHOCYTES % (AUTO) 18.7 % (20.0-44.0); MEAN CORPUSCULAR HGB CONC 33 g/dl (31.0-36.0); MEAN CORPUSCULAR VOLUME 84 fL (80-96); MONOCYTES # (AUTO) 0.5 /CMM (0.1-1.30); NEUTROPHILS # (AUTO) 5.5 /CMM (1.8-8.9); NEUTROPHILS % (AUTO) 72.8 % (43.0-81.0); PLATELET COUNT (AUTO) 528 /CMM (150-450); RED BLOOD CELL COUNT(AUTO) 2.43 MIL/uL (4.5-6.0); WHITE BLOOD COUNT (AUTO) 7.6 K/uL (4.3-11.0)
[2018-04-22 07:26] LABS: HEMATOCRIT 20 % (39-51); HEMOGLOBIN 6.7 g/dL (13.5-17.5)
[2018-04-22 07:32] LABS: CALCIUM, SERUM 8.5 mg/dL (8.5-10.1); CARBON DIOXIDE 31 mmol/L (21-32); CHLORIDE 105 mmol/L (98-107); GLUCOSE 179 mg/dL (74-106); SODIUM SERUM 140 mmol/L (136-145); UREA NITROGEN, BLOOD 33 mg/dL (7-18)
[2018-04-22 08:00] VITALS: BP 109/49
--- NOTE | 2018-04-22 08:00 | NUR ---
MS RN NOTES @4062 NOTED WITH HGB IS 6.7,PAGED DR.ANDONIAN REYES,PCP AND HE ORDERED TO RECHECK H/H @1000,NEW ORDERS NOTED AND CARRIED OUT.
[2018-04-22 08:42] LABS: LYMPHOCYTES % (MANUAL) 21 % (16-48); MONOCYTES % (MANUAL) 7 % (0-11.0); NEUTROPHILS % (MANUAL) 72 (42-76)
[2018-04-22] MEDS: PROSOURCE / PROSTAT (PYXIS) 30 ML UDC GT SCH (08:58)
[2018-04-22] MEDS: VANCOMYCIN 500 MG in IV D5W 100 ML IV SCH ×2 (08:58→21:14)
[2018-04-22] MEDS: AMLODIPINE BESYLATE 5 MG TABLET GT SCH (09:00)
[2018-04-22] MEDS: Fluoxetine 10 mg capsule PO SCH (09:06)
[2018-04-22] MEDS: LACTOBACILLUS RHAMNOSUS GG 1 EACH CAP.SPRINK GT SCH ×2 (09:06→16:48)
[2018-04-22] MEDS: ZINC SULFATE 220 MG CAPSULE GT SCH (09:06)
[2018-04-22] MEDS: PANTOPRAZOLE 40 MG/PACK PACK GT SCH (09:06)
[2018-04-22] MEDS: MULTIVIT W/MINERALS 1 TAB TABLET GT SCH (09:06)
[2018-04-22] MEDS: ASPIRIN 81 MG TAB.CHEW GT SCH (09:07)
[2018-04-22] MEDS: ASCORBIC ACID 500 MG TABLET GT SCH (09:07)
[2018-04-22] MEDS: DAKINS QUARTER STRENGTH (0.125%) 480 ML BOTTLE TOP SCH (09:10)
[2018-04-22] MEDS: NEOMY SULF/BACITRAC ZN/POLY 15 GM TUBE TP SCH ×2 (09:10→16:49)
[2018-04-22] MEDS: VORICONAZOLE 200 MG TABLET PO SCH ×2 (09:18→21:15)
[2018-04-22 10:42] LABS: HEMOGLOBIN 6.7 g/dL (13.5-17.5)
--- NOTE | 2018-04-22 11:00 | NUR ---
MS RN NOTES @1042 NOTED WITH HGB IS 6.7,PAGEED DR.ANDONIAN REYES,AWAITING FOR THE CALL BACK.
--- NOTE | 2018-04-22 13:00 | NUR ---
MS RN NOTES DR.ANDONIAN REYES CALLED BACK,NNO NOTED.
[2018-04-22 16:00] VITALS: BP 100/53
[2018-04-22] MEDS: HYDROCODONE/APAP 5/325MG 1 EACH TABLET GT PRN (16:52)
--- NOTE | 2018-04-22 18:50 | NUR ---
MS RN CLOSING NOTES PT SLEEPING IN BED, WITH HOB ELEVATED, PT IS ALERT, HOWEVER CONFUSED, PT IS ON ROOM AIR, SATURATING WELL, RR EVEN AND UNLABORED, NO SOB NOTED, IV SITES ARE INTACT TO R WRIST 20G AND L HAND 20G, NO INFILTRATION NOTED, DRESSING KEPT CLEAN AND DRY, GTUBE IN PLACE, CURRENTLY ON GLUCERNA @65ML/HR, TOLERATING WELL, MINIMAL RESIDUAL NOTED, FC IS IN PLACE WITH CLOUDY URINE, BED LOCKED AND LOW, CALL LIGHT WITHIN REACH, VITAL SIGNS CHECKED AND ARE WNL, WILL ENDORSE TO POUCH MAKER NURSE FOR CONTINUITY OF CARE.
[2018-04-22 20:00] VITALS: BP_SYST 112; BP_SYST 121; BP_DIAS 56
[2018-04-22] MEDS: GLUCERNA 1.2 1,000 ML BOTTLE GT PRN (21:14)
[2018-04-22] MEDS: ATORVASTATIN 10 MG TABLET GT SCH (21:14)
[2018-04-22] MEDS: DONEPEZIL 5 MG TABLET GT SCH (21:15)
--- NOTE | 2018-04-22 21:38 | NUR ---
MS RN NOTES RECEIVED PT ON BED. A/O X 1. ON ROOM AIR NO RESPIRATORY DISTRESS NOTED. ON FC DRAINING URINE WELL. IV ACCESS ON LFA G22 WITH NS RUNNING @ 75CC/HR PATENT AND INTACT. GTUBE FEEDING RUNNING AT 65ML/HR NO RESIDUAL NOTED. PT ON BILATERAL SOFT RESTRAINTS. HEAD OF BED ELEVATED. SIDE RAILS UP. CALL LIGHT WITHIN REACH. BED ALARM ON. WILL CONTINUE TO MONITOR PT CLOSELY.
[2018-04-22 22:21] LABS: BASOPHILS # (AUTO) 0.1 /CMM (0.0-0.2); BASOPHILS % (AUTO) 1.1 % (0.0-2.0); EOSINOPHILS % (AUTO) 1.6 % (0.0-6.0); LYMPHOCYTES # (AUTO) 1.6 /CMM (0.8-4.8); LYMPHOCYTES % (AUTO) 19.3 % (20.0-44.0); MEAN CORPUSCULAR HGB CONC 33 g/dl (31.0-36.0); MEAN CORPUSCULAR VOLUME 84 fL (80-96); MONOCYTES # (AUTO) 0.6 /CMM (0.1-1.30); MONOCYTES % (AUTO) 6.8 % (2.0-12.0); NEUTROPHILS # (AUTO) 5.9 /CMM (1.8-8.9); NEUTROPHILS % (AUTO) 71.2 % (43.0-81.0); PLATELET COUNT (AUTO) 523 /CMM (150-450); RED BLOOD CELL COUNT(AUTO) 2.25 MIL/uL (4.5-6.0); WHITE BLOOD COUNT (AUTO) 8.3 K/uL (4.3-11.0)
[2018-04-22 22:23] LABS: HEMATOCRIT 19 % (39-51)
[2018-04-22 22:24] LABS: HEMOGLOBIN 6.3 g/dL (13.5-17.5)
--- NOTE | 2018-04-22 22:28 | NUR ---
MS RN NOTES H/H OF 6.3. CALLED MONORAIL CAR OPERATOR FOR ORDERS.
[2018-04-22] MEDS: INSULIN GLARGINE, 100 UNIT/ML CARTRIDGE SQ SCH (22:39)
--- NOTE | 2018-04-22 22:46 | NUR ---
MS RN NOTES CHARANJIT DODD ORDERED 1 UNIT OF PRBC AND 20MG IV LASIX TO FOLLOW AFTER. WILL MONITOR PT CLOSELY.
[2018-04-23] VITALS (8 sets, daily range): BP systolic 105–117; BP diastolic 46–86
[2018-04-23] MEDS: ALBUTEROL FS 2.5 MG/3 ML VIAL.NEB NEB SCH ×3 (01:02→13:55)
[2018-04-23 01:36] LABS: LYMPHOCYTES % (MANUAL) 26 % (16-48); MONOCYTES % (MANUAL) 4 % (0-11.0); NEUTROPHILS % (MANUAL) 70 (42-76)
[2018-04-23] MEDS ORDERED: FUROSEMIDE 20 MG/2 ML VIAL IV ONE (03:30)
[2018-04-23] MEDS: BLOOD SUGAR DIAGNOSTIC 1 EACH STRIP IN SCH ×2 (05:07→12:19)
[2018-04-23] MEDS: ZOSYN IVPB 3.375 G in IV D5W 50ml IV SCH ×2 (05:07→12:15)
--- NOTE | 2018-04-23 07:05 | NUR ---
MS RN OPENING NOTES RECEIVED PT LYING IN BED, WITH HOB ELEVATED, PT IS ALERT, HOWEVER CONFUSED, PT IS ON ROOM AIR, SATURATING WELL, RR EVEN AND UNLABORED, NO SOB NOTED, IV SITES ARE INTACT TO R WRIST 20G AND LFA 22G RUNNING, NO INFILTRATION NOTED, DRESSING KEPT CLEAN AND DRY, GTUBE IN PLACE, CURRENTLY ON GLUCERNA @65ML/HR, TOLERATING WELL, MINIMAL RESIDUAL NOTED, FC IS IN PLACE WITH CLOUDY SEDIMENTATION, BILATERAL SOFT RESTRAINTS NOTED, BED LOCKED AND LOW, BED RAILS UP X4, CALL LIGHT WITHIN REACH, WILL MONITOR THROUGHOUT SHIFT FOR CONTINUITY OF CARE. Addendum: 04/23/18 at 0959 by MICHAEL COVARRUBIAS RN IV CLARIFICATION LFA 22G SALINE LOCK, ISAAC 20G WITH 0.9 NORMAL SALINE RUNNING AT 75ML/HR.
--- NOTE | 2018-04-23 07:26 | NUR ---
MS RN NOTES NO ACUTE CHANGES NOTED DURING THE SHIFT. PROVIDED COMFORT AND SAFETY. WILL ENDORSE TO THE MORNING NURSE FOR CONTINUITY OF CARE.
[2018-04-23] MEDS: ZINC SULFATE 220 MG CAPSULE GT SCH (08:19)
[2018-04-23] MEDS: LACTOBACILLUS RHAMNOSUS GG 1 EACH CAP.SPRINK GT SCH (08:19)
[2018-04-23] MEDS: PANTOPRAZOLE 40 MG/PACK PACK GT SCH (08:19)
[2018-04-23] MEDS: MULTIVIT W/MINERALS 1 TAB TABLET GT SCH (08:20)
[2018-04-23] MEDS: Fluoxetine 10 mg capsule PO SCH (08:21)
[2018-04-23] MEDS: ASCORBIC ACID 500 MG TABLET GT SCH (08:22)
[2018-04-23] MEDS: ASPIRIN 81 MG TAB.CHEW GT SCH (08:22)
[2018-04-23 08:25] LABS: CARBON DIOXIDE 31 mmol/L (21-32); CHLORIDE 105 mmol/L (98-107); CREATININE 0.9 mg/dL (0.6-1.3); GLUCOSE 156 mg/dL (74-106); POTASSIUM 4.2 mmol/L (3.5-5.1); SODIUM SERUM 140 mmol/L (136-145); UREA NITROGEN, BLOOD 30 mg/dL (7-18)
[2018-04-23] MEDS: PROSOURCE / PROSTAT (PYXIS) 30 ML UDC GT SCH (08:29)
[2018-04-23] MEDS: VORICONAZOLE 200 MG TABLET PO SCH (08:33)
[2018-04-23] MEDS: IV NS 0.9% 1,000 ML IV PRN (08:34)
[2018-04-23] MEDS: AMLODIPINE BESYLATE 5 MG TABLET GT SCH (08:35)
[2018-04-23] MEDS: NEOMY SULF/BACITRAC ZN/POLY 15 GM TUBE TP SCH (08:36)
[2018-04-23 08:46] LABS: BASOPHILS # (AUTO) 0.1 /CMM (0.0-0.2); BASOPHILS % (AUTO) 0.5 % (0.0-2.0); HEMATOCRIT 24 % (39-51); LYMPHOCYTES # (AUTO) 1.2 /CMM (0.8-4.8); LYMPHOCYTES % (AUTO) 11.9 % (20.0-44.0); MEAN CORPUSCULAR HGB CONC 33 g/dl (31.0-36.0); MEAN CORPUSCULAR VOLUME 85 fL (80-96); MONOCYTES # (AUTO) 0.7 /CMM (0.1-1.30); MONOCYTES % (AUTO) 7.2 % (2.0-12.0); NEUTROPHILS # (AUTO) 7.9 /CMM (1.8-8.9); NEUTROPHILS % (AUTO) 79.4 % (43.0-81.0); PLATELET COUNT (AUTO) 570 /CMM (150-450); RED BLOOD CELL COUNT(AUTO) 2.84 MIL/uL (4.5-6.0)
[2018-04-23] MEDS: VANCOMYCIN 500 MG in IV D5W 100 ML IV SCH (09:15)
[2018-04-23] MEDS: DAKINS QUARTER STRENGTH (0.125%) 480 ML BOTTLE TOP SCH (09:17)
--- NOTE | 2018-04-23 09:50 | NUR ---
MS RN NOTES ASSESSED PATIENT'S RIGHT WRIST IV PATENCY, DISCONTINUED D/T PATIENT'S IV LEAKING.
[2018-04-23] MEDS: INSULIN REGULAR, HUMAN 100 UNIT/ML 3 ML VIAL SQ PRN (12:47)
[2018-04-23] MEDS: HYDROCODONE/APAP 5/325MG 1 EACH TABLET GT PRN (13:32)
--- NOTE | 2018-04-23 16:00 | NUR ---
SMELTER LINER NOTES ORDERED TO DISCHARGE THE PT TO [facility].ALL THE DISCHARGE PROCESS HAS DONE AND DISCHARGE MEDS AND TREATMENT HAS DISCUSSED WITH THE STAFF JADE HAMILTON IN SNF.VITAL SIGNS CHECKED AND RECORDED.SKIN ASSESSMENT HAS DONE AND PICTURE HAS TAKEN.IV LINE HAS REMOVED.G TUBE FEEDING HAS DONE ANF G TUBE IS FLUSHED.ON ROOM AIR,TOLERATING WELL.NO SOB AND ACUTE DISTRESS NOTED.AMBULANCE CAME AND PICKED UP THE PT. Addendum: 04/23/18 at 1900 by PAUL FUENTES RN ENDORSED TO NIGHT HIFT RN ABOUT TOMORROW PROCEDURE AND NPO STATUS MIDNIGHT.
== END 2018-04-23 16:00 | DRG 853 ==
LOC: ER 18:04 → TELE1 19:53 → MEDSG1 04-15 11:05
PROVIDERS: ADMIT Nurse Practitioner Acute Care; ATTEND Family Medicine
PROC: 0KBP0ZZ Excision of Left Hip Muscle, Open Approach (ICD-10-PCS; principal; 2018-04-14)
PROC: 0KBN0ZZ Excision of Right Hip Muscle, Open Approach (ICD-10-PCS; 2018-04-14)
PROC: 30233N1 Transfusion of Nonautologous Red Blood Cells into Peripheral Vein, Percutaneous Approach (ICD-10-PCS; 2018-04-21)
DX: A41.9 Sepsis, unspecified organism (principal); L89.154 Pressure ulcer of sacral region, stage 4; E43 Unspecified severe protein-calorie malnutrition; J96.01 Acute respiratory failure with hypoxia; N17.0 Acute kidney failure with tubular necrosis; I21.A1 Myocardial infarction type 2; J69.0 Pneumonitis due to inhalation of food and vomit; J15.9 Unspecified bacterial pneumonia; E87.1 Hypo-osmolality and hyponatremia; B37.49 Other urogenital candidiasis; E87.2 Acidosis; Z68.1 Body mass index [BMI] 19.9 or less, adult; I25.10 Atherosclerotic heart disease of native coronary artery without angina pectoris; R65.20 Severe sepsis without septic shock; E78.5 Hyperlipidemia, unspecified; F03.90 Unspecified dementia, unspecified severity, without behavioral disturbance, psychotic disturbance, mood disturbance, and anxiety; I11.0 Hypertensive heart disease with heart failure; K21.9 Gastro-esophageal reflux disease without esophagitis; R13.10 Dysphagia, unspecified; E88.09 Other disorders of plasma-protein metabolism, not elsewhere classified; F32.9 Major depressive disorder, single episode, unspecified; L89.620 Pressure ulcer of left heel, unstageable; D47.3 Essential (hemorrhagic) thrombocythemia; N40.1 Benign prostatic hyperplasia with lower urinary tract symptoms; Z79.4 Long term (current) use of insulin; D63.8 Anemia in other chronic diseases classified elsewhere; E11.65 Type 2 diabetes mellitus with hyperglycemia; I25.2 Old myocardial infarction; E86.1 Hypovolemia; I50.9 Heart failure, unspecified; J45.909 Unspecified asthma, uncomplicated; Z79.82 Long term (current) use of aspirin; Z93.1 Gastrostomy status
CPT/HCPCS: 36415; 71045-TC; 80048-TC; 80061-TC; 80076-TC; 80202-TC; 81000-TC; 82962-TC; 83605-TC; 83735-TC; 83880; 84100-TC; 84443-TC; 84484-TC; 85025-TC; 85027-TC; 86850-TC; 86921-TC; 87040-TC; 87081-TC; 87086-TC; 94799-TC; A6253; A6402; A6403; G0378; J1644; J1815; J1940; J2060; J2405; J2543; J3370; J7030; J7050; J7060; P9016-BL